=== PATIENT | male | born 1965 | race Caucasian/White ===

== ENCOUNTER → 2019-11-21 13:02 | Outpatient (CLI) | payer MEDICARE, MEDICAID, SELFPAY ==
--- NOTE | 2019-11-21 | XR_ITS ---
WS: [id number] PROCEDURE: XR chest 2V* [id number] CLINICAL INFORMATION: HEMOPTYSIS COMPARISON: FINDINGS: Dorsal spinal stimulator mid thoracic spine. Heart: Normal cardiac silhouette. Lungs: Lungs are clear. No consolidation or pleural fluid. No acute pulmonary infiltrates. 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 XR/XR chest 2V* [id number] IMPRESSION: 1. Moderate chronic emphysematous changes. No acute pulmonary infiltrates. 2. Dorsal spinal stimulator. 3. No other significant findings.
== END ==
PROVIDERS: Family Provider Family Medicine; Visit Provider Family Medicine
DX: Z01.89 Encounter for other specified special examinations (principal)
CPT/HCPCS: 71046

== ENCOUNTER → 2019-11-21 | Outpatient (CLI) | payer SELFPAY | PROVIDERS: Family Provider Family Medicine; Visit Provider Family Medicine | DX: J43.9 Emphysema, unspecified (principal); R04.2 Hemoptysis | CPT/HCPCS: 71250 ==

== ENCOUNTER → 2020-01-26 08:34 | Outpatient (BNVA) | payer MEDICARE, MEDICAID, SELFPAY | PROVIDERS: Family Provider Family Medicine; Visit Provider Family Medicine | DX: R68.89 Other general symptoms and signs (principal); J10.1 Influenza due to other identified influenza virus with other respiratory manifestations; F17.219 Nicotine dependence, cigarettes, with unspecified nicotine-induced disorders | CPT/HCPCS: 87804 ==

== ENCOUNTER → 2020-01-30 13:44 | Outpatient (BNVA) | payer MEDICARE, MEDICAID, SELFPAY | PROVIDERS: Family Provider Family Medicine; Visit Provider Nurse Practitioner Psychiatric/Mental Health | DX: F31.63 Bipolar disorder, current episode mixed, severe, without psychotic features (principal); F02.80 Dementia in other diseases classified elsewhere, unspecified severity, without behavioral disturbance, psychotic disturbance, mood disturbance, and anxiety; F17.210 Nicotine dependence, cigarettes, uncomplicated | CPT/HCPCS: 99213 ==

== ENCOUNTER → 2020-05-29 14:28 | Outpatient (BNVA) | payer MEDICARE, MEDICAID, SELFPAY | PROVIDERS: Family Provider Family Medicine; PCP Family Medicine; Visit Provider Family Medicine | DX: R63.4 Abnormal weight loss (principal); R10.9 Unspecified abdominal pain | CPT/HCPCS: 80053; 84443; 85025 ==

== ENCOUNTER 2020-06-10 08:09 | Outpatient (CLI) | payer MEDICARE, MEDICAID, SELFPAY ==
[2020-06-10] MEDS: iohexol 300 mg/mL 50 mL Btl PO (08:53)
--- NOTE | 2020-06-10 09:30 | CT_ITS ---
WS: [id number] CT ABDOMEN PELVIS TECHNIQUE: Contrast-enhanced CT of the abdomen and pelvis with coronal and sagittal reformatted image s. CLINICAL INFORMATION: abdominal pain, weight loss COMPARISON: None. DLP: 1126.[address] scans at [facility] use at least one of these dose optimization techniques: automat ed exposure control; mA and/or kV adjustment per patient size (includes targeted exams where dose is matched to clinical indication); or iterative reconstruction. FINDINGS: Normal liver. Normal spleen. Normal GE junction. Adrenal glands are normal. Normal renal parenchymal enhancement. Lower pole left renal cyst measuring 2.6 cm. No hydronephrosis. Both adrenal glands are normal. Normal GE junction. Diverticulosis. No evidence of acute diverticulitis. Calcified enlarged prostate measuring 4.5 CM. Re commend correlation PSA. Urine distended bladder. Slight retrolisthesis L2 on L3 and L3 on L4. Lung b ases are well aerated. Small calculus or polyp in the gallbladder neck measuring 8 mm. This can be fo llowed up with ultrasound. No gallbladder wall thickening. No abdominal or inguinal lymphadenopathy. CT/CT abdomen pelvis w con* [id number] IMPRESSION: 1. Diverticulosis. No evidence of acute diverticulitis. 2. Tiny fat-containing umbilical hernia. 3. No abdominal or pelvic lymphadenopathy. 4. Left renal cyst measuring 2.6 cm. 5. Enlarged prostate measuring 4.5 cm recommend correlation PSA. 6. Small calculus or polyp in the gallbladder neck measuring 8 mm. This can be followed up with ultrasound.
[2020-06-10] MEDS: iohexol 300 mg/mL 100 mL Btl IV (09:49)
== END 2020-06-10 08:10 | disposition home or self-care (01) ==
LOC: RADWPI 08:12
PROVIDERS: Family Provider Family Medicine; PCP Family Medicine; Visit Provider Family Medicine
DX: R10.9 Unspecified abdominal pain (principal); R63.4 Abnormal weight loss; K57.90 Diverticulosis of intestine, part unspecified, without perforation or abscess without bleeding; K42.9 Umbilical hernia without obstruction or gangrene; N28.1 Cyst of kidney, acquired; N40.0 Benign prostatic hyperplasia without lower urinary tract symptoms
CPT/HCPCS: 74177; Q9967

== ENCOUNTER → 2020-06-21 07:34 | Outpatient (BNVA) | payer MEDICARE, MEDICAID, SELFPAY | PROVIDERS: Family Provider Family Medicine; PCP Family Medicine; Visit Provider Nurse Practitioner Psychiatric/Mental Health | DX: F31.63 Bipolar disorder, current episode mixed, severe, without psychotic features (principal); F02.80 Dementia in other diseases classified elsewhere, unspecified severity, without behavioral disturbance, psychotic disturbance, mood disturbance, and anxiety; F17.210 Nicotine dependence, cigarettes, uncomplicated | CPT/HCPCS: 99213 ==

== ENCOUNTER 2020-07-02 07:00 | Outpatient (CLI) | payer MEDICARE, MEDICAID, SELFPAY ==
--- NOTE | 2020-07-02 07:15 | US_ITS ---
WS: [id number] ULTRASOUND ABDOMEN LIMITED CLINICAL INFORMATION: gallbladder mass chronic nausea COMPARISON: None. FINDINGS: Liver Size: Enlarged Craniocaudal length: 17.2 cm. Echogenicity: Fatty Surface nodularity: None. Mass (size and location): None. Bile ducts Intrahepatic ducts: Normal. Common bile duct diameter: 0.4 cm. Gallbladder Normal. Gallstones: None. Gallbladder sludge: None. Gallbladder wall thickening: None. Pericholecystic fluid: None. Sonographic Loyola sign: Absent. Pancreas Normal as visualized. Right kidney: Normal. Hydronephrosis: None. Size: 10.9 cm x 5.1 cm x 6.2 cm. Abdominal aorta and IVC Visualized portions are normal. Ascites: None. US/US abdomen limited [id number] IMPRESSION: 1. Hepatomegaly with diffuse fatty infiltration. No intrahepatic biliary ducta l dilatation. 2. Normal gallbladder. Normal common bile duct. 3. No Hydronephrosis in right kidney.
== END 2020-07-02 07:01 | disposition home or self-care (01) ==
PROVIDERS: PCP Family Medicine; Visit Provider Family Medicine
DX: R11.0 Nausea (principal); K82.8 Other specified diseases of gallbladder; R16.0 Hepatomegaly, not elsewhere classified; K76.0 Fatty (change of) liver, not elsewhere classified
CPT/HCPCS: 76705

== ENCOUNTER 2020-07-11 09:37 | Outpatient (CLI) | payer MEDICARE, MEDICAID, SELFPAY ==
--- NOTE | 2020-07-11 10:00 | NM_ITS ---
WS: [id number] EXAM: NM hepatobiliary w phar* [id number] DATE OF EXAMINATION: 07/11/2020, 1123 hour COMPARISON: Right upper quadrant ultrasound from 07/02/2020. HISTORY: 54 years old with abdominal pain TECHNIQUE: 7.9 mCi of technetium 99m mebrofenin was injected intravenously. Serial scintigraphic images overlyin g the right upper quadrant were obtained through 60 minutes followed by the ingestion of 8 ounces Ens ure Plus with ejection fraction calculated. FINDINGS: There is prompt uptake of the tracer by the liver parenchyma. By the 15 minute frame there is tracer activity seen within the biliary system. By the 50 minute frame there also appears to be tracer activ ity within the small bowel. Gallbladder begins to show uptake of tracer by 40 minutes. Ejection fract ion is calculated at 96%. NM/NM hepatobiliary w phar* [id number] IMPRESSION: Normal hepatobiliary scan. No findings of obstruction. Gallbladder has normal u ptake of tracer activity. Ejection fraction estimated at 96%.
== END 2020-07-11 09:38 | disposition home or self-care (01) ==
LOC: NM 09:38
PROVIDERS: PCP Family Medicine; Visit Provider Surgery
DX: R10.9 Unspecified abdominal pain (principal)
CPT/HCPCS: 78227; A9537

== ENCOUNTER → 2020-07-22 08:28 | Outpatient (BNVA) | payer MEDICARE, MEDICAID, SELFPAY | PROVIDERS: PCP Family Medicine; Visit Provider Internal Medicine | DX: K21.9 Gastro-esophageal reflux disease without esophagitis (principal); R10.84 Generalized abdominal pain | CPT/HCPCS: 87635 ==

== ENCOUNTER 2020-07-24 07:40 | Day surgery (SDC) | payer MEDICARE, MEDICAID, SELFPAY ==
[2020-07-22 13:35] VITALS: BMI 23.1
[2020-07-24 07:58] VITALS: BP 108/71; PULSE 96; RESP 18; TEMP 36.7; O2SAT 99
[2020-07-24] MEDS: sodium chloride 0.9% 1,000 ML 30 ML IV (08:01)
--- NOTE | 2020-07-24 08:14 | ANES.PREANE2 ---
Pre-Anesthetic Assessment Pre-Anesthetic Assessment: Height/Weight: Height 1.91 m Weight 83.915 kg Temp Pulse Resp BP Pulse Ox 98.0 F 96 18 108/71 99 07/24/20 07:58 07/24/20 07:58 07/24/20 07:58 07/24/20 07:58 07/24/20 07:58 Preop Diagnosis: Abdominal pain and weight loss Proposed Procedure: Operation Date: 07/24/20 08:30 Proposed Procedures p EGD/colon 88685 [id number] K21.9 Z12.11(Not Applicable) - Akira Dawkins MD s Colonoscopy(Not Applicable) - Akira Dawkins MD Was Beta Medhat taken within 24 hours: N/A Last intake: Intake Last Liquid Date 07/23/20 Last Liquid Time 21:00 Last Solid Date 07/22/20 Social: Social History: Tobacco (1/2pk) and No alcohol Exam: Pre-Anes Outpt Exam: alert, oriented x 3, clear to auscultation bilaterally and regular rate & rhythm Airway: Submandibular: WNL Cervical ROM: WNL MP: 1 Dentition: False History/ROS: No significant history except as noted and No significant complaints Pulmonary: Pulmonary: COPD CV/HEM: CV/HEM: None reported : : None reported Hepatic: Hepatic: None reported GI: GI: GERD Metabolic: Metabolic: None reported Musc/skel: Musc/skel: Lower Back Pain Comments: back surgery hx pain stimulator Neuropsych: Neuropsych: Dementia and MCCOY Comments: parkinsons Anesthetic Plan: ASA status: 3 Anesthesia: MAC Meds/Allergies Current Medications: Current Medications Generic Name Dose Route Start Last Admin Trade Name Freq PRN Reason Stop Dose Admin Sodium Chloride 1,000 mls @ 30 ml s/hr 07/24/20 06:30 07/24/20 08:01 Sodium Chloride 0.9% IV 07/25/20 06:29 30 mls/hr .Q24H SUKH Administration PFSH Anesthesia PFSH: Medical History (Updated 07/03/20 @ 14:41 by Carly Antonio RN) Bipolar 1 disorder, mixed, severe Chronic GERD COPD (chronic obstructive pulmonary disease) Enrolled in chronic care management Major neurocognitive disorder due to multiple etiologies MCI (mild cognitive impairment) Migraine headache Nicotine dependence, cigarettes, uncomplicated BRIANDA (obstructive sleep apnea) Parkinson's disease dementia RLS (restless legs syndrome) Surgical History H/O shoulder surgery History of back surgery S/P hernia repair S/P insertion of spinal cord stimulator Family History Other CAD (coronary artery disease) Cancer Dementia Social History Smoking and tobacco status: current every day smoker cigarettes Packs smoked per day: 0.75 Alcohol intake: former Lives independently: Yes Household members: significant other Current occupational status: disabled Data Anesthesia Cardiac Studies: No Data to Display
--- NOTE | 2020-07-24 08:23 | W.PM.OPSUD ---
Surgery/Procedure H&P Update DATE OF PROCEDURE: July 24, 2020 DATE H&P PERFORMED: 07/03/20 H&P UPDATE INFORMATION: I have reviewed H&P completed within last 30 days, I have examined patient prior to procedure and No changes to prior documentation PREOP DIAGNOSIS: Abdominal pain and weight loss PRIMARY INDICATION FOR PROCEDURE: The same PLANNED PROCEDURE: Operation Date: 07/24/20 08:30 Proposed Procedures p EGD/colon 63400 [id number] K21.9 Z12.11(Not Applicable) - Akira Dawkins MD s Colonoscopy(Not Applicable) - Akira Dawkins MD
[2020-07-24 08:53] VITALS: BP 91/62; PULSE 82; RESP 16; TEMP 36.4; O2SAT 99
--- NOTE | 2020-07-24 09:30 | ANE.PACU2 ---
Inpatient post-anesthesia follow up: Airway intact: Yes Vital signs: Temperature 97.5 F Pulse Rate 82 Respiratory Rate 16 Blood Pressure 91/62 Pulse Oximetry 99 Oxygen Delivery Me thod Nasal Cannula Oxygen Flow Rate 2 Fraction of Inspir ed Oxygen Hydration adequate: Yes Nausea and vomiting: No Mental status: Baseline
[2020-07-25 10:01] LABS: H. Pylori / CLO Test Negative
== END 2020-07-24 09:23 | disposition home or self-care (01) ==
PROVIDERS: PCP Family Medicine; Visit Provider Surgery
PROC: 0DJ08ZZ Inspection of Upper Intestinal Tract, Via Natural or Artificial Opening Endoscopic (ICD-10-PCS; CPT 43235; principal; 2020-07-24 08:30)
PROC: 0DJD8ZZ Inspection of Lower Intestinal Tract, Via Natural or Artificial Opening Endoscopic (ICD-10-PCS; CPT 45378; 2020-07-24 08:30)
DX: R63.4 Abnormal weight loss (principal); K29.70 Gastritis, unspecified, without bleeding; K57.30 Diverticulosis of large intestine without perforation or abscess without bleeding; F17.210 Nicotine dependence, cigarettes, uncomplicated; J44.9 Chronic obstructive pulmonary disease, unspecified; K21.9 Gastro-esophageal reflux disease without esophagitis; F31.63 Bipolar disorder, current episode mixed, severe, without psychotic features; G47.33 Obstructive sleep apnea (adult) (pediatric); G20 Parkinson's disease; F02.80 Dementia in other diseases classified elsewhere, unspecified severity, without behavioral disturbance, psychotic disturbance, mood disturbance, and anxiety; G25.81 Restless legs syndrome
CPT/HCPCS: 12345; 43239; 45378; 87077; J2704; J7030

== ENCOUNTER 2020-08-27 09:05 | Outpatient (CLI) | payer MEDICARE, MEDICAID, SELFPAY ==
--- NOTE | 2020-08-27 09:15 | FL_ITS ---
WS: [id number] BARIUM ENEMA SINGLE CONTRAST. HISTORY: K57.90 Diverticulosis of intestine COMPARISON: None available. FLUOROSCOPY TIME: 2.8 minutes. Moderate amount retained air and fecal material throughout the colon. Dorsal column stimulator batter y pack projects over the mid LEFT abdomen. Facet joint arthritis and SI joint sclerosis. Patient tolerated the rectal tip and instillation of barium via gravity without difficulty. There are numerous tortuous overlapping loops of colon. Numerous diverticula throughout the colon. The small f illing defects seen within the transverse colon which appear to represent a diverticular disease seen en face. There is no persistent stricture or narrowing. Appendix is visualized and negative. FL/FL barium enema [id number] IMPRESSION: 1. Tortuous overlapping loops of colon with numerous scattered diverticula thr oughout. 2. No strictures or mucosal lesions identified. 3. Study is limited due to limited prep and retained fecal material.
== END 2020-08-27 09:06 | disposition home or self-care (01) ==
LOC: RADWPI 09:12
PROVIDERS: PCP Family Medicine; Visit Provider Surgery
DX: K57.90 Diverticulosis of intestine, part unspecified, without perforation or abscess without bleeding (principal)
CPT/HCPCS: 74270

== ENCOUNTER → 2020-09-06 07:27 | Outpatient (BNVA) | payer MEDICARE, MEDICAID, SELFPAY | PROVIDERS: PCP Family Medicine; Visit Provider Nurse Practitioner Psychiatric/Mental Health | DX: F31.63 Bipolar disorder, current episode mixed, severe, without psychotic features (principal); F02.80 Dementia in other diseases classified elsewhere, unspecified severity, without behavioral disturbance, psychotic disturbance, mood disturbance, and anxiety; F17.210 Nicotine dependence, cigarettes, uncomplicated; Z79.899 Other long term (current) drug therapy; F33.42 Major depressive disorder, recurrent, in full remission | CPT/HCPCS: 99213 ==

== ENCOUNTER → 2020-12-18 07:53 | Outpatient (BNVA) | payer MEDICARE, MEDICAID, SELFPAY | PROVIDERS: PCP Family Medicine; Visit Provider Nurse Practitioner Psychiatric/Mental Health | DX: F31.63 Bipolar disorder, current episode mixed, severe, without psychotic features (principal); F02.80 Dementia in other diseases classified elsewhere, unspecified severity, without behavioral disturbance, psychotic disturbance, mood disturbance, and anxiety; F17.210 Nicotine dependence, cigarettes, uncomplicated | CPT/HCPCS: 99214 ==

== ENCOUNTER → 2021-02-05 07:19 | Outpatient (BNVA) | payer MEDICARE, MEDICAID, SELFPAY | PROVIDERS: PCP Family Medicine; Visit Provider Nurse Practitioner Psychiatric/Mental Health | DX: F31.63 Bipolar disorder, current episode mixed, severe, without psychotic features (principal); F02.80 Dementia in other diseases classified elsewhere, unspecified severity, without behavioral disturbance, psychotic disturbance, mood disturbance, and anxiety; F17.210 Nicotine dependence, cigarettes, uncomplicated | CPT/HCPCS: 99214 ==

== ENCOUNTER → 2021-02-07 09:21 | Outpatient (BNVA) | payer MEDICARE, MEDICAID, SELFPAY | PROVIDERS: PCP Family Medicine; Visit Provider Nurse Practitioner Psychiatric/Mental Health | DX: Z79.899 Other long term (current) drug therapy (principal) | CPT/HCPCS: 80053; 80061; 83036 ==

== ENCOUNTER → 2021-03-05 08:05 | Outpatient (BNVA) | payer MEDICARE, MEDICAID, SELFPAY | PROVIDERS: PCP Family Medicine; Visit Provider Nurse Practitioner Psychiatric/Mental Health | DX: F31.63 Bipolar disorder, current episode mixed, severe, without psychotic features (principal); F02.80 Dementia in other diseases classified elsewhere, unspecified severity, without behavioral disturbance, psychotic disturbance, mood disturbance, and anxiety; F17.210 Nicotine dependence, cigarettes, uncomplicated | CPT/HCPCS: 99214 ==

== ENCOUNTER 2021-03-20 21:58 | Emergency (ER) | payer MEDICARE, MEDICAID, SELFPAY ==
[2021-03-20 22:26] VITALS: BP 97/69; PULSE 75; RESP 16; TEMP 37.3; O2SAT 100; BMI 20.9
--- NOTE | 2021-03-21 00:29 | XRR_ITS ---
PROCEDURE INFORMATION: Exam: XR Chest Exam date and time: 03/21/2021 12:45 AM Age: 55 years old Clinical indication: Patient HX: General maliase; Additional info: Fatigue TECHNIQUE: Imaging protocol: XR of the chest. Views: 1 view. COMPARISON: CT chest con [id number] 11/21/2019 2:25 PM FINDINGS: Lungs: There is hypoaeration of the lungs compatible with emphysematous changes. Pleural spaces: Unremarkable. No pleural effusion. No pneumothorax. Heart/Mediastinum: Unremarkable. No cardiomegaly. Bones/joints: Unremarkable. XR/XR chest 1V portable [id number] IMPRESSION: There are no acute chest findings.
[2021-03-21 01:23] VITALS: BP 112/77; PULSE 54; RESP 18; O2SAT 99
[2021-03-21 01:26] LABS: Basophils % 0.6 %; Eosinophils # 0.1 10^3/uL (0.0-0.8); Eosinophils % 1.5 %; Hematocrit 43.7 % (42.0-52.0); Hemoglobin 14.4 g/dL (11.7-16.6); Lymphocytes # 1.8 10^3/uL (0.8-4.8); Lymphocytes % 33.8 %; Mean Corpuscular Hemoglobin 30.9 pg (28.0-34.0); Mean Corpuscular Volume 93.8 fL (80-94); Monocytes # 0.4 10^3/uL (0.2-0.9); Monocytes % 7.3 %; Neutrophils # 2.95 10^3/uL (1.8-7.7); Neutrophils % 56.6 %; Nucleated Red Blood Cells % 0 %; Platelet Count 185 10^3/cmm (130-400); Red Blood Count 4.66 10^6/uL (4.1-5.3); Red Cell Distribution Width 12.8 % (12.1-15.1); White Blood Count 5.2 10^3/uL (4.0-10.0)
--- NOTE | 2021-03-21 01:26 | CTR_ITS ---
PROCEDURE INFORMATION: Exam: CT Abdomen And Pelvis With Contrast Exam date and time: 03/21/2021 1:31 AM Age: 55 years old Clinical indication: Prior surgery; Surgery type: Stimulator; Patient HX: Maliase. Loss of appetite. Back pain. ; Additional info: Back pain, abd pain TECHNIQUE: Imaging protocol: Computed tomography of the abdomen and pelvis with contrast. Radiation optimization: All CT scans at this facility use at least one of these dose optimization techniques: automated exposure control; mA and/or kV adjustment per patient size (includes targeted exams where dose is matched to clinical indication); or iterative reconstruction. Contrast material: OMNI 300; Contrast volume: 95 ml; Contrast route: INTRAVENOUS (IV); COMPARISON: CT abdomen pelvis w con* [id number] 06/10/2020 9:47 AM RADIATION DOSE METRICS: Total DLP (mGy-cm): 1347.12 FINDINGS: Pleural spaces: Minimal strandy and hazy opacities are seen in the posterior right costophrenic recess likely representing atelectasis versus parenchymal or pleural scarring. Liver: There are tiny hypodensities seen within the liver, the largest measuring 7.1 mm within the left hepatic lobe likely representing small hepatic cysts. Gallbladder and bile ducts: Normal. No calcified stones. No ductal dilation. Pancreas: Normal. No ductal dilation. Spleen: Normal. No splenomegaly. Adrenal glands: Normal. No mass. Kidneys and ureters: Is stable pelvocaliceal cyst seen within the left kidney measuring 2.6 cm. Stomach and bowel: Diverticula are seen on the descending and sigmoid colon. There are no inflammatory changes present to suggest diverticulitis. Appendix: The appendix is visualized and is normal in configuration. Intraperitoneal space: Unremarkable. No free air. No significant fluid collection. Vasculature: Calcifications are seen within the abdominal aorta, iliac and femoral arteries bilaterally. Lymph nodes: Unremarkable. No enlarged lymph nodes. Urinary bladder: There is bladder wall thickening seen although the bladder is incompletely distended. However, chronic cystitis cannot be entirely excluded. Reproductive: Unremarkable as visualized. Bones/joints: Loss of disc height and degenerative disc disease is seen within the lumbar spine, most notably from L3-L5. Soft tissues: Unremarkable. CT/CT abdomen pelvis w con* [id number] IMPRESSION: 1. There are no acute abdominal findings. 2. Small hypodensities within the liver likely represent benign appendix cysts, the largest seen in the left hepatic lobe measuring 7.1 mm. No further workup needed. 3. Stable pelvocaliceal cyst seen within the left kidney measuring 2.6 cm. No further workup needed. 4. Diverticulosis of the descending and sigmoid colon 5. Bladder wall thickening although the bladder is incompletely distended. However, cystitis cannot be entirely excluded. Radiation Dose CTDIVOL = (mGy): DLP = 1347.12 (mGy-cm)
[2021-03-21 01:39] LABS: Blood Urine 2+ (Negative); Glucose Urine UA Norm (Normal); Ketones Urine Negative (Negative); Protein Urine Neg (Negative); Specific Gravity, Urine 1.015 (1.005-1.030); Urine Appearance Clear (CLEAR); Urine Color Yellow (Yellow); pH Urine 8 (5-7)
[2021-03-21] MEDS: sodium chloride 0.9% 500 ML 999 ML IV (01:39)
[2021-03-21 01:40] LABS: Add Urine Microscopic? YES; Bacteria Urine TRACE /hpf; Bilirubin Urine Neg (Negative); Leukocyte Esterase Urine Negative (Negative); Nitrate Urine Negative (Negative); RBC Urine 0-4 /hpf (0-2); Squamous Epithelial Cell Urine 0-4 /hpf (0-5); Sulfosalicylic Acid Urine Negative (Negative); Urobilinogen Urine Norm (Negative); WBC Urine 0-4 /hpf (0-5)
[2021-03-21 01:47] LABS: Creatine Phosphokinase 77 U/L (39-308)
[2021-03-21 01:48] LABS: Troponin(5th) Baseline 7 ng/L (0-15)
[2021-03-21 01:52] LABS: Alanine Aminotransferase 11 U/L (0-41); Albumin Level 4.2 g/dL (3.5-5.2); Alkaline Phosphatase 62 IU/L (40-130); Blood Urea Nitrogen 12 mg/dL (6-20); Calcium 9.2 mg/dL (8.5-10.5); Carbon Dioxide 24 mmol/L (22-29); Chloride 105 mmol/L (98-107); Globulin 1.8 g/dL (1.3-4.6); Glomerular Filtration Rate 88.3 mL/min (90-130); Glucose 82 mg/dL (65-115); Lipase 39 U/L (13-60); Osmolality Calculated 287 mOsm/kg (285-295); Sodium 139 mmol/L (136-145); Total Bilirubin 0.7 mg/dL (0.15-1.2)
[2021-03-21 01:54] LABS: Anion Gap 13.7 (5-19); Potassium 3.7 mmol/L (3.5-5.1)
[2021-03-21 01:55] LABS: Aspartate Amino Transferase 16 U/L (0-40)
[2021-03-21] MEDS: iohexol 300 mg/mL 100 mL Btl IV (01:58)
--- NOTE | 2021-03-21 01:58 | W.ED.GENADLT ---
HPI - General Adult General: Chief complaint: General Medical Stated complaint: GENERAL MALAISE Time Seen by Provider: 03/21/21 01:09 Source: patient Mode of arrival: ambulatory Limitations: no limitations History of Present Illness: HPI narrative: 55-year-old male patient presents to the emergency department with complaints of decreased appetite, aching all over, decreased mobility, he suffers from dementia and Parkinson's disease. Significant other reports he has stayed in bed for the past several weeks. She reports when she bathes him, he complains of pain all over, she states his skin is extremely sensitive to the touch. He has history of dementia, Parkinson's type, under the care of Dr. Mora, neurology, is transitioning from Dr. Salcedo to Dr. Conn for hospice care. His significant other is requesting hospice referral as pain is not controlled under pain management and wants him comfortable. He is complaining of back pain and abdominal pain, states is under the care of pain management for chronic back pain of the lower back. He has history of weight loss, has been under the care of Dr. Dawkins for weight loss and decreased appetite. He reports weakness, he describes back pain as same but worse. Primary care provider is Dr. Conn He reports back pain is worsened with movement. He denies fever chills, nausea or vomiting. He denies falls in the home. Radiation: back and abdomen Severity: moderate Quality: aching and dull Pain Consistency: constant Relieving factors: rest Exacerbating factors: movement Associated symptoms: Reports decreased appetite and headache(s); Deny chest pain, diaphoresis, dyspnea, nausea, rash, palpitations or vomiting Review of Systems General: Reports: 10 or more systems reviewed and unremarkable except in HPI and below Const: Denies: fever(s), chills or diaphoresis Eyes: Denies: blurry vision or eye redness ENMT: Denies: throat pain, dental pain or disequilibrium Card: Denies: chest pain, palpitations or irregular heart rhythm Resp: Denies: dyspnea, productive cough, non-productive cough, wheezing or chest congestion GI: Reports: abdominal pain; Denies: nausea, vomiting, heartburn, diarrhea or constipation : Denies: dysuria Musc: Reports: back pain; Denies: neck pain or joint pain Skin/Breast: Denies: rash or pruritus Neuro: Reports: headache(s) Psych: Reports: change in appetite and difficulty concentrating; Denies: anxiety or depression Venancio/Lymph: Denies: easy bruising PFSH ED PFSH: Medical History Abdominal pain Bipolar 1 disorder, mixed, severe Chronic GERD COPD (chronic obstructive pulmonary disease) Diverticulosis Enrolled in chronic care management Major neurocognitive disorder due to multiple etiologies MCI (mild cognitive impairment) Migraine headache Nicotine dependence, cigarettes, uncomplicated BRIANDA (obstructive sleep apnea) Parkinson's disease dementia RLS (restless legs syndrome) Surgical History H/O shoulder surgery History of back surgery S/P hernia repair S/P insertion of spinal cord stimulator Family History Other CAD (coronary artery disease) Cancer Dementia Social History Smoking and tobacco status: current every day smoker cigarettes Packs smoked per day: 0.75 Years cigarettes smoked: 35 Quit status (tobacco): considering quitting Second hand smoke exposure: Yes Smoking risk assessment/counseling performed?: Yes Alcohol intake: former Counseling given: No Counseling given: No Lives independently: Yes Household members: significant other Current occupational status: disabled History of recent travel: No Current gender identity: Male Physical Exam Const: COMMON NORMALS: no acute distress, patient oriented x3 and alert GENERAL APPEARANCE: cooperative, well kempt, frail appearing and well hydrated; not anxious and not ill appearing NUTRITIONAL APPEARANCE: thin ORIENTATION/CONSCIOUSNESS: Yes awake, Yes oriented to person, Yes oriented to place, Yes oriented to time and Yes Other orientation findings (Appears emaciated) HENMT: COMMON NORMALS: normocephalic, atraumatic, EAC's normal, Normal external nose present and moist oral mucous membranes HEAD & SCALP: normal to inspection, normocephalic and atraumatic FACE & SINUS: normal facial exam, sinuses nontender and face symmetric NOSE: Normal external nose present and No nasal polyps present EXTERNAL AUDITORY CANAL: EAC's normal MOUTH: Normal oral and palatal mucosa present, lip normal and tongue normal THROAT: posterior oropharynx normal, tonsils normal and uvula midline Eye: COMMON NORMALS: Equal, round and reactive pupils present and EOMs intact bilaterally GENERAL EYE: appearance normal, both eyes and all related structures PUPIL: Yes Equal, round and reactive pupils present Neck/C-Spine: COMMON NORMALS: full ROM and no lymphadenopathy GENERAL: Yes normal visual inspection and Yes trachea midline CERVICAL SPINE: Yes cervical ROM normal Lymph: LYMPHATIC: no lymphadenopathy noted Chest: COMMONS NORMALS: normal inspection of the chest and normal palpation of entire chest wall Resp: COMMON NORMALS: normal respiratory effort, No retractions, No use of accessory muscles and clear to auscultation bilaterally EFFORT & INSPECTION: Yes able to speak in complete sentences AUSCULTATION: clear to auscultation bilaterally Cardio: COMMON NORMALS: regular rate, regular rhythm, S1 normal heart sound present, S2 normal heart sound present and Peripheral pulses 2+ throughout RATE: regular rate RHYTHM: regular rhythm HEART SOUNDS: S1 normal heart sound present and S2 normal heart sound present PERIPHERAL PULSES: Peripheral pulses 2+ throughout GI: COMMON NORMALS: Soft to palpation INSPECTION: Yes normal to inspection, No abdominal wall ecchymosis, No abdominal distension and No central obesity PALPATION: Yes Soft to palpation and Yes Tenderness to palpation present (GI) Details: LLQ, RLQ, LUQ and RUQ : BLADDER/KIDNEY EXAM: Yes CVA tenderness on the right Back/Pelvis: COMMON NORMALS: thoracic and lumbar spine normal to inspection GENERAL BACK: Yes CVA tenderness THORACIC SPINE/UPPER BACK: Yes pain with ROM, Yes thoracic spinal tenderness and Yes paraspinal muscle tenderness LUMBAR SPINE/LOWER BACK: Yes pain with ROM, Yes lumbar spinal tenderness and Yes paraspinal muscle tenderness PELVIS: Yes buttocks normal SACROILIAC JOINTS: Yes SI joints normal OTHER: Scar to the lumbar spine, spinal stimulator noted to the right lumbar, no erythema or discoloration of the skin Extremity: COMMON NORMALS: normal to inspection, full ROM, capillary refill normal, no clubbing, cyanosis or edema, no calf tenderness and no pedal edema GENERAL: Yes normal exam except as noted Neuro: COMMON NORMALS: patient oriented x3 and no focal motor deficits SENSORIUM/ORIENTATION: Yes alert, Yes oriented to person, Yes oriented to place and Yes oriented to time Psych: COMMON NORMALS: mental status grossly normal, cooperative, normal affect and speech normal APPEARANCE: Yes well kempt ACTIVITY/MOTOR BEHAVIOR: Yes appropriate eye contact SPEECH: Yes normal speech THOUGHT PROCESS: Circumstantial thought process present THOUGHT CONTENT: No Suicidality present and No Homicidality present INSIGHT: Fair insight present (Psych) Skin: COMMON NORMALS: no rashes or lesions noted and turgor normal GENERAL SKIN EXAM: no rashes or lesions noted and turgor normal Course Vital Signs: Vital signs: Vital Signs Temperature 99.2 F 03/20/21 22:26 Pulse Rate 54 L 03/21/21 01:23 Respiratory Rate 18 03/21/21 01:23 Blood Pressure 112/77 03/21/21 01:23 Pulse Oximetry 99 03/21/21 01:23 MDM - General Adult MDM Narrative: Medical decision making narrative: 55-year-old male presents to the emergency department with complaints of hurting all over, decreased appetite secondary to dementia, continued decline. His significant other is at bedside and states his neurologist states his dementia is progressing rapidly, as she is asking for hospice, recently transitioned from Dr. Benitez to Dr. Conn, hospice currently on hold due to insufficient records. Pain management is not controlling pain. ESR was 1.5, CPK 77, he did receive a liter of fluids here in the ED, findings of serology, CT scans without acute process. Social service referral for hospice placed to help assist with needed medication to keep patient comfortable. I will initiate Neurontin to help with nerve pain. Advised significant other to dose Percocet regularly as prescribed. Protein was found to be low, will initiate Ensure 1 can daily due to protein of 6.0. Lab Data: Labs: Lab Results 03/21/21 03/21/21 03/21/21 Range/Units 01:20 01:20 01:20 WBC 5.2 (4.0-10.0) 10^3/ uL RBC 4.66 (4.1-5.3) 10^6/u L Hgb 14.4 (11.7-16.6) g/dL Hct 43.7 (42.0-52.0) % MCV 93.8 (80-94) fL MCH 30.9 (28.0-34.0) pg MCHC 33.0 (30.0-36.0) g/dL RDW 12.8 (12.1-15.1) % Plt Count 185 (130-400) 10^3/c mm MPV 10.0 (7.4-10.4) fL Neut % (Auto) 56.6 % Lymph % (Auto) 33.8 % Hawkins % (Auto) 7.3 % Eos % (Auto) 1.5 % Baso % (Auto) 0.6 % Neut # (Auto) 2.95 (1.8-7.7) 10^3/u L Lymph # (Auto) 1.8 (0.8-4.8) 10^3/u L Hawkins # (Auto) 0.4 (0.2-0.9) 10^3/u L Eos # (Auto) 0.1 (0.0-0.8) 10^3/u L Baso # (Auto) 0.0 (0.0-0.1) 10^3/u L Nucleated RBC % (a uto) 0 % Nucleated RBCs # 0.0 /100WBC Sodium 139 (136-145) mmol/L Potassium 3.7 (3.5-5.1) mmol/L Chloride 105 (98-107) mmol/L Carbon Dioxide 24 (22-29) mmol/L Anion Gap 13.7 (5-19) BUN 12 (6-20) mg/dL Creatinine 0.9 (0.7-1.2) mg/dL GFR Calculation 88.3 L (90-130) mL/min Glucose 82 (65-115) mg/dL Calculated Osmolal ity 287 (285-295) mOsm/k g Lactate 1.0 (0.5-2.2) mmol/L Calcium 9.2 (8.5-10.5) mg/dL Total Bilirubin 0.7 (0.15-1.2) mg/dL AST 16 (0-40) U/L ALT 11 (0-41) U/L Alkaline Phosphata se 62 (40-130) IU/L Creatine Kinase (39-308) U/L Troponin T Baselin e (0-15) ng/L C-Reactive Protein (0.0-4.9) mg/L Total Protein 6.0 L (6.6-8.7) g/dL Albumin 4.2 (3.5-5.2) g/dL Globulin 1.8 (1.3-4.6) g/dL Lipase 39 (13-60) U/L Urine Color (Yellow) Urine Appearance (CLEAR) Urine pH (5-7) Ur Specific Gravit y (1.005-1.030) Urine Protein (Negative) Urine Glucose (UA) (Normal) Urine Ketones (Negative) Urine Blood (Negative) Urine Nitrate (Negative) Urine Bilirubin (Negative) Prot Sulfosalicyli c Acd (Negative) Urine Urobilinogen (Negative) mg/dL Ur Leukocyte Jahaira ase (Negative) Urine RBC (0-2) /hpf Urine WBC (0-5) /hpf Ur Squamous Epith Cells (0-5) /hpf Amorphous Sediment Urine Bacteria (NONE) /hpf 03/21/21 03/21/21 03/21/21 Range/Units 01:20 01:20 01:20 WBC (4.0-10.0) 10^3/ uL RBC (4.1-5.3) 10^6/u L Hgb (11.7-16.6) g/dL Hct (42.0-52.0) % MCV (80-94) fL MCH (28.0-34.0) pg MCHC (30.0-36.0) g/dL RDW (12.1-15.1) % Plt Count (130-400) 10^3/c mm MPV (7.4-10.4) fL Neut % (Auto) % Lymph % (Auto) % Hawkins % (Auto) % Eos % (Auto) % Baso % (Auto) % Neut # (Auto) (1.8-7.7) 10^3/u L Lymph # (Auto) (0.8-4.8) 10^3/u L Hawkins # (Auto) (0.2-0.9) 10^3/u L Eos # (Auto) (0.0-0.8) 10^3/u L Baso # (Auto) (0.0-0.1) 10^3/u L Nucleated RBC % (a uto) % Nucleated RBCs # /100WBC Sodium (136-145) mmol/L Potassium (3.5-5.1) mmol/L Chloride (98-107) mmol/L Carbon Dioxide (22-29) mmol/L Anion Gap (5-19) BUN (6-20) mg/dL Creatinine (0.7-1.2) mg/dL GFR Calculation (90-130) mL/min Glucose (65-115) mg/dL Calculated Osmolal ity (285-295) mOsm/k g Lactate (0.5-2.2) mmol/L Calcium (8.5-10.5) mg/dL Total Bilirubin (0.15-1.2) mg/dL AST (0-40) U/L ALT (0-41) U/L Alkaline Phosphata se (40-130) IU/L Creatine Kinase 77 (39-308) U/L Troponin T Baselin e 7 (0-15) ng/L C-Reactive Protein (0.0-4.9) mg/L Total Protein (6.6-8.7) g/dL Albumin (3.5-5.2) g/dL Globulin (1.3-4.6) g/dL Lipase (13-60) U/L Urine Color Yellow (Yellow) Urine Appearance Clear (CLEAR) Urine pH 8 H (5-7) Ur Specific Gravit y 1.015 (1.005-1.030) Urine Protein Neg (Negative) Urine Glucose (UA) Norm (Normal) Urine Ketones Negative (Negative) Urine Blood 2+ H (Negative) Urine Nitrate Negative (Negative) Urine Bilirubin Neg (Negative) Prot Sulfosalicyli c Acd Negative (Negative) Urine Urobilinogen Norm (Negative) mg/dL Ur Leukocyte Jahaira ase Negative (Negative) Urine RBC 0-4 H (0-2) /hpf Urine WBC 0-4 H (0-5) /hpf Ur Squamous Epith Cells 0-4 H (0-5) /hpf Amorphous Sediment Not Reportable Urine Bacteria Trace (NONE) /hpf 03/21/21 Range/Units 01:20 WBC (4.0-10.0) 10^3/ uL RBC (4.1-5.3) 10^6/u L Hgb (11.7-16.6) g/dL Hct (42.0-52.0) % MCV (80-94) fL MCH (28.0-34.0) pg MCHC (30.0-36.0) g/dL RDW (12.1-15.1) % Plt Count (130-400) 10^3/c mm MPV (7.4-10.4) fL Neut % (Auto) % Lymph % (Auto) % Hawkins % (Auto) % Eos % (Auto) % Baso % (Auto) % Neut # (Auto) (1.8-7.7) 10^3/u L Lymph # (Auto) (0.8-4.8) 10^3/u L Hawkins # (Auto) (0.2-0.9) 10^3/u L Eos # (Auto) (0.0-0.8) 10^3/u L Baso # (Auto) (0.0-0.1) 10^3/u L Nucleated RBC % (a uto) % Nucleated RBCs # /100WBC Sodium (136-145) mmol/L Potassium (3.5-5.1) mmol/L Chloride (98-107) mmol/L Carbon Dioxide (22-29) mmol/L Anion Gap (5-19) BUN (6-20) mg/dL Creatinine (0.7-1.2) mg/dL GFR Calculation (90-130) mL/min Glucose (65-115) mg/dL Calculated Osmolal ity (285-295) mOsm/k g Lactate (0.5-2.2) mmol/L Calcium (8.5-10.5) mg/dL Total Bilirubin (0.15-1.2) mg/dL AST (0-40) U/L ALT (0-41) U/L Alkaline Phosphata se (40-130) IU/L Creatine Kinase (39-308) U/L Troponin T Baselin e (0-15) ng/L C-Reactive Protein 1.5 (0.0-4.9) mg/L Total Protein (6.6-8.7) g/dL Albumin (3.5-5.2) g/dL Globulin (1.3-4.6) g/dL Lipase (13-60) U/L Urine Color (Yellow) Urine Appearance (CLEAR) Urine pH (5-7) Ur Specific Gravit y (1.005-1.030) Urine Protein (Negative) Urine Glucose (UA) (Normal) Urine Ketones (Negative) Urine Blood (Negative) Urine Nitrate (Negative) Urine Bilirubin (Negative) Prot Sulfosalicyli c Acd (Negative) Urine Urobilinogen (Negative) mg/dL Ur Leukocyte Jahaira ase (Negative) Urine RBC (0-2) /hpf Urine WBC (0-5) /hpf Ur Squamous Epith Cells (0-5) /hpf Amorphous Sediment Urine Bacteria (NONE) /hpf Imaging Data^: CXR: Radiologist's impression: [place], [place] [address]PWnf ReportSigned Patient: Cabrera Sherman #: [id number]: 1965Acct#:[id number]/Sex: 55 / MADM Date: 03/20/21Loc: ERRoom/Bed:Attending Dr: Ordering Provider/Ordering MD: Rosemary Burks Date of Service: 03/21/21 Procedure(s): XR chest 1V portable [id number] Accession Number(s): [id number] Report Number: [id number] PROCEDURE INFORMATION: Exam: XR Chest Exam date and time: 03/21/2021 12:45 AM Age: 55 years old Clinical indication: Patient HX: General maliase; Additional info: Fatigue TECHNIQUE: Imaging protocol: XR of the chest. Views: 1 view. COMPARISON: CT chest wo con [id number] 11/21/2019 2:25 PM FINDINGS: Lungs: There is hypoaeration of the lungs compatible with emphysematous changes. Pleural spaces: Unremarkable. No pleural effusion. No pneumothorax. Heart/Mediastinum: Unremarkable. No cardiomegaly. Bones/joints: Unremarkable. XR/XR chest 1V portable [id number] IMPRESSION: There are no acute chest findings. Dictated By:Rj Owen MDSigned By:Rj Owen MDSigned Date/Time:03/21/21 0123DD/ 0122 CT Abd/Pel: Radiologist's impression: [place], [place] [address]VT Scan ReportSigned Patient: Cabrera Sherman #: [id number]: 1965Acct#:[id number]/Sex: 55 / MADM Date: 03/20/21Loc: ERRoom/Bed:Attending Dr: Ordering Provider/Ordering MD: Rosemary Burks Date of Service: 03/21/21 Procedure(s): CT abdomen pelvis w con* [id number] Accession Number(s): [id number] Report Number: [id number] PROCEDURE INFORMATION: Exam: CT Abdomen And Pelvis With Contrast Exam date and time: 03/21/2021 1:31 AM Age: 55 years old Clinical indication: Prior surgery; Surgery type: Stimulator; Patient HX: Maliase. Loss of appetite. Back pain. ; Additional info: Back pain, abd pain TECHNIQUE: Imaging protocol: Computed tomography of the abdomen and pelvis with contrast. Radiation optimization: All CT scans at this facility use at least one of these dose optimization techniques: automated exposure control; mA and/or kV adjustment per patient size (includes targeted exams where dose is matched to clinical indication); or iterative reconstruction. Contrast material: OMNI 300; Contrast volume: 95 ml; Contrast route: INTRAVENOUS (IV); COMPARISON: CT abdomen pelvis w con* [id number] 06/10/2020 9:47 AM RADIATION DOSE METRICS: Total DLP (mGy-cm): 1347.12 FINDINGS: Pleural spaces: Minimal strandy and hazy opacities are seen in the posterior right costophrenic recess likely representing atelectasis versus parenchymal or pleural scarring. Liver: There are tiny hypodensities seen within the liver, the largest measuring 7.1 mm within the left hepatic lobe likely representing small hepatic cysts. Gallbladder and bile ducts: Normal. No calcified stones. No ductal dilation. Pancreas: Normal. No ductal dilation. Spleen: Normal. No splenomegaly. Adrenal glands: Normal. No mass. Kidneys and ureters: Is stable pelvocaliceal cyst seen within the left kidney measuring 2.6 cm. Stomach and bowel: Diverticula are seen on the descending and sigmoid colon. There are no inflammatory changes present to suggest diverticulitis. Appendix: The appendix is visualized and is normal in configuration. Intraperitoneal space: Unremarkable. No free air. No significant fluid collection. Vasculature: Calcifications are seen within the abdominal aorta, iliac and femoral arteries bilaterally. Lymph nodes: Unremarkable. No enlarged lymph nodes. Urinary bladder: There is bladder wall thickening seen although the bladder is incompletely distended. However, chronic cystitis cannot be entirely excluded. Reproductive: Unremarkable as visualized. Bones/joints: Loss of disc height and degenerative disc disease is seen within the lumbar spine, most notably from L3-L5. Soft tissues: Unremarkable. CT/CT abdomen pelvis w con* [id number] IMPRESSION: 1. There are no acute abdominal findings. 2. Small hypodensities within the liver likely represent benign appendix cysts, the largest seen in the left hepatic lobe measuring 7.1 mm. No further workup needed. 3. Stable pelvocaliceal cyst seen within the left kidney measuring 2.6 cm. No further workup needed. 4. Diverticulosis of the descending and sigmoid colon 5. Bladder wall thickening although the bladder is incompletely distended. However, cystitis cannot be entirely excluded. Radiation Dose CTDIVOL = (mGy): DLP = 1347.12 (mGy-cm) Dictated By:Rj Owen MDSigned By:Rj Owen MDSigned Date/Time:03/21/214DD/ 1 CT Head: Radiologist's impression: [address] [id number] Scan ReportSigned Patient: Cabrera Sherman #: [id number]: 1965Acct#:[id number]/Sex: 55 / MADM Date: 03/20/21Loc: ERRoom/Bed:Attending Dr: Ordering Provider/Ordering MD: Rosemary Burks Date of Service: 03/21/21 Procedure(s): CT head wo con* [id number] Accession Number(s): [id number] Report Number: [id number] PROCEDURE INFORMATION: Exam: CT Head Without Contrast Exam date and time: 03/21/2021 2:12 AM Age: 55 years old Clinical indication: Pain; Headache not specified; Patient HX: Headache with maliase; Additional info: Read/ weakness TECHNIQUE: Imaging protocol: Computed tomography of the head without contrast. Radiation optimization: All CT scans at this facility use at least one of these dose optimization techniques: automated exposure control; mA and/or kV adjustment per patient size (includes targeted exams where dose is matched to clinical indication); or iterative reconstruction. COMPARISON: CT head wo con* [id number] 12/28/2016 1:46 PM RADIATION DOSE METRICS: Total DLP (mGy-cm): 4340096313 FINDINGS: Brain: Normal. No hemorrhage. Unremarkable white matter. No mass effect. Cerebral ventricles: No ventriculomegaly. Bones/joints: Unremarkable. No acute fracture. Paranasal sinuses: Mild mucosal thickening and fluid is seen within the ethmoidal sinuses bilaterally. Mastoid air cells: Visualized mastoid air cells are well aerated. Soft tissues: Unremarkable. CT/CT head wo con* [id number] IMPRESSION: There are no acute intracranial findings. Stable head CT compared with 12/28/2016. Radiation Dose CTDIVOL = (mGy): DLP = 3927574292 (mGy-cm) Dictated By:Rj Owen MDSigned By:Rj Owen MDSigned Date/Time:03/21/21D/ 8 Discharge Plan Discharge Patient Disposition: Home Clinical Impression: Pain, Adult failure to thrive Dementia Qualifiers: Dementia type: unspecified type Dementia behavioral disturbance: without behavioral disturbance Qualified Code(s): F03.90 - Unspecified dementia without behavioral disturbance UTI (urinary tract infection) Qualifiers: Urinary tract infection type: acute cystitis Hematuria presence: with hematuria Qualified Code(s): N30.01 - Acute cystitis with hematuria Condition: Stable Prescriptions: New Neurontin 100 mg capsule 100 mg PO BID Qty: 60 RF: 0 Cipro 500 mg tablet 500 mg PO BID Qty: 20 RF: 0 No Action levetiracetam [Keppra] 250 mg tablet 250 mg PO BID RF: 0 albuterol sulfate [Ventolin HFA] 90 mcg/actuation HFA aerosol inhaler 2 puff INHALATION Q4H PRN (Reason: Shortness Of Breath) RF: 0 sumatriptan succinate 100 mg tablet 100 mg PO Q2H PRNRF: 0 Anoro Ellipta 62.5-25 mcg/actuation blister with device 1 inh inhalation Q24H 30 Days Qty: 60 RF: 4 quetiapine [Seroquel] 25 mg tablet 25 mg PO .evening Qty: 30 RF: 1 omeprazole 20 mg capsule,delayed release(DR/EC) 20 mg PO BID Qty: 60 RF: 2 hydroxyzine HCl 25 mg tablet 25 mg PO BID PRN (Reason: anxiety) Qty: 180 RF: 2 mirtazapine [Remeron] 15 mg tablet 15 mg PO .bedtime Qty: 90 RF: 2 oxycodone-acetaminophen [Percocet] 7.5-325 mg Tablet 1 tab PO TID PRN (Reason: Pain) RF: 0 Discharge Orders: Discharge ED (Routine); Ordered 03/21/21 Ordered By: Rosemary Burks Referrals: Katerine Salcedo DO [Primary Care Provider] - Discharge Diet: Advance as tolerated Discharge Activity: Limit activity as instructed Patient Instructions: Failure to Thrive (ED), Urinary Tract Infection in Men (ED), Dementia (ED), Opioid Safety Activity Restrictions/Additional Instructions: director of creative services will be contacting you tomorrow for follow-up regarding hospice care Follow-up with Dr. Conn/Dr. Salcedo next week without fail for further recommendations regarding failure to thrive 1 can of Ensure daily has been prescribed Return to the emergency department if concerning symptoms occur Encourage frequent meals Administer Percocet as prescribed for pain Coding Level of Care Code ED Intensive Care Unit Registered Nurse for Chg Fwd Exam Comprehensive
--- NOTE | 2021-03-21 02:05 | CTR_ITS ---
PROCEDURE INFORMATION: Exam: CT Head Without Contrast Exam date and time: 03/21/2021 2:12 AM Age: 55 years old Clinical indication: Pain; Headache not specified; Patient HX: Headache with maliase; Additional info: Read/ weakness TECHNIQUE: Imaging protocol: Computed tomography of the head without contrast. Radiation optimization: All CT scans at this facility use at least one of these dose optimization techniques: automated exposure control; mA and/or kV adjustment per patient size (includes targeted exams where dose is matched to clinical indication); or iterative reconstruction. COMPARISON: CT head wo con* [id number] 12/28/2016 1:46 PM RADIATION DOSE METRICS: Total DLP (mGy-cm): 8409538649 FINDINGS: Brain: Normal. No hemorrhage. Unremarkable white matter. No mass effect. Cerebral ventricles: No ventriculomegaly. Bones/joints: Unremarkable. No acute fracture. Paranasal sinuses: Mild mucosal thickening and fluid is seen within the ethmoidal sinuses bilaterally. Mastoid air cells: Visualized mastoid air cells are well aerated. Soft tissues: Unremarkable. CT/CT head wo con* [id number] IMPRESSION: There are no acute intracranial findings. Stable head CT compared with 12/28/2016. Radiation Dose CTDIVOL = (mGy): DLP = 9393451547 (mGy-cm)
[2021-03-21 02:30] VITALS: BP 112/72; PULSE 56; RESP 14; O2SAT 96
[2021-03-21 02:58] LABS: C Reactive Protein 1.5 mg/L (0.0-4.9)
[2021-03-21 03:29] LABS: Troponin 5 2HR 7.15 ng/L (0-15); Troponin 5 2HR Delta 0.15 ABS# (0-10)
[2021-03-21 03:32] VITALS: PULSE 54; RESP 14; O2SAT 96
[2021-03-21 03:33] VITALS: RESP 18
[2021-03-21] MEDS: oxyCODONE-APAP 5-325 mg Tablet 1 TAB PO (03:33)
[2021-03-21 03:38] VITALS: BP 116/70; PULSE 58; RESP 16; O2SAT 96
--- NOTE | 2021-03-25 10:48 | DCPLANNER ---
sales and marketing manager had message to speak with patient about hospice care. sales and marketing manager called phone number [phone], unable to speak with anyone at this time, a voicemail was left for patient to return therapeutic case manager phone call.
== END 2021-03-21 03:39 | disposition home or self-care (01) ==
PROVIDERS: Emergency Provider Nurse Practitioner Family; PCP Family Medicine
DX: R53.81 Other malaise (principal); N30.01 Acute cystitis with hematuria; R62.7 Adult failure to thrive; R52 Pain, unspecified; J44.9 Chronic obstructive pulmonary disease, unspecified; G20 Parkinson's disease; F02.80 Dementia in other diseases classified elsewhere, unspecified severity, without behavioral disturbance, psychotic disturbance, mood disturbance, and anxiety; F17.210 Nicotine dependence, cigarettes, uncomplicated
CPT/HCPCS: 36415; 70450; 71045; 74177; 80053; 81001; 82550; 83605; 83690; 84484; 85025; 86140; 99284; J7040; Q9967

== ENCOUNTER → 2021-04-02 08:14 | Outpatient (BNVA) | payer OTHER, SELFPAY | PROVIDERS: PCP Family Medicine; Visit Provider Nurse Practitioner Psychiatric/Mental Health | DX: F31.63 Bipolar disorder, current episode mixed, severe, without psychotic features (principal); F02.80 Dementia in other diseases classified elsewhere, unspecified severity, without behavioral disturbance, psychotic disturbance, mood disturbance, and anxiety; F17.210 Nicotine dependence, cigarettes, uncomplicated | CPT/HCPCS: 99214 ==

== ENCOUNTER → 2021-05-29 07:17 | Outpatient (BNVA) | payer MEDICARE, MEDICAID, SELFPAY | PROVIDERS: PCP Family Medicine; Visit Provider Nurse Practitioner Psychiatric/Mental Health | DX: F31.63 Bipolar disorder, current episode mixed, severe, without psychotic features (principal); F02.80 Dementia in other diseases classified elsewhere, unspecified severity, without behavioral disturbance, psychotic disturbance, mood disturbance, and anxiety; F17.210 Nicotine dependence, cigarettes, uncomplicated | CPT/HCPCS: 99214 ==

== ENCOUNTER → 2021-07-14 15:13 | Outpatient (BNVA) | payer MEDICARE, MEDICAID, SELFPAY | PROVIDERS: PCP Family Medicine; Visit Provider Family Medicine | DX: Z20.822 Contact with and (suspected) exposure to COVID-19 (principal); R60.0 Localized edema; Z11.52 Encounter for screening for COVID-19; J06.9 Acute upper respiratory infection, unspecified | CPT/HCPCS: 80053; 87426 ==

== ENCOUNTER → 2021-08-08 07:28 | Outpatient (BNVA) | payer MEDICARE, MEDICAID, SELFPAY | PROVIDERS: PCP Family Medicine; Visit Provider Nurse Practitioner Psychiatric/Mental Health | DX: F31.63 Bipolar disorder, current episode mixed, severe, without psychotic features (principal); F02.80 Dementia in other diseases classified elsewhere, unspecified severity, without behavioral disturbance, psychotic disturbance, mood disturbance, and anxiety; F17.210 Nicotine dependence, cigarettes, uncomplicated | CPT/HCPCS: 99214 ==

== ENCOUNTER 2021-08-28 06:00 | Outpatient (RCR) | payer MEDICARE, MEDICAID, SELFPAY | END 2021-09-21 23:59 | disposition home or self-care (01) | LOC: SPT 06:00 | PROVIDERS: PCP Family Medicine; Referring Provider Psychiatry & Neurology Neurology; Visit Provider Psychiatry & Neurology Neurology | DX: G20 Parkinson's disease (principal) | CPT/HCPCS: 97110; 97112; 97162 ==

== ENCOUNTER 2021-09-22 06:00 | Outpatient (RCR) | payer MEDICARE, MEDICAID, SELFPAY | END 2021-10-21 23:59 | disposition home or self-care (01) | LOC: SPT 06:00 | PROVIDERS: PCP Family Medicine; Referring Provider Psychiatry & Neurology Neurology; Visit Provider Psychiatry & Neurology Neurology | DX: G20 Parkinson's disease (principal) | CPT/HCPCS: 97110; 97112 ==

== ENCOUNTER → 2021-09-29 08:30 | Outpatient (BNVA) | payer MEDICARE, MEDICAID, SELFPAY | PROVIDERS: PCP Family Medicine; Visit Provider Nurse Practitioner Psychiatric/Mental Health | DX: F31.63 Bipolar disorder, current episode mixed, severe, without psychotic features (principal); F02.80 Dementia in other diseases classified elsewhere, unspecified severity, without behavioral disturbance, psychotic disturbance, mood disturbance, and anxiety; F17.210 Nicotine dependence, cigarettes, uncomplicated | CPT/HCPCS: 99214 ==

== ENCOUNTER → 2021-10-27 14:15 | Outpatient (BNVA) | payer MEDICARE, MEDICAID, SELFPAY | PROVIDERS: PCP Family Medicine; Visit Provider Nurse Practitioner Psychiatric/Mental Health | DX: F31.63 Bipolar disorder, current episode mixed, severe, without psychotic features (principal); F02.80 Dementia in other diseases classified elsewhere, unspecified severity, without behavioral disturbance, psychotic disturbance, mood disturbance, and anxiety; F17.210 Nicotine dependence, cigarettes, uncomplicated | CPT/HCPCS: 99214 ==

== ENCOUNTER 2021-10-28 14:15 | Outpatient (RCR) | payer MEDICARE, MEDICAID, SELFPAY | END 2021-11-07 23:00 | disposition home or self-care (01) | LOC: SPT 14:15 | PROVIDERS: PCP Family Medicine; Referring Provider Psychiatry & Neurology Neurology; Visit Provider Psychiatry & Neurology Neurology | DX: G20 Parkinson's disease (principal) | CPT/HCPCS: 97110; 97112 ==

== ENCOUNTER 2021-11-11 16:15 | Outpatient (CLI) | payer MEDICARE, MEDICAID, SELFPAY | END 2021-11-11 16:16 | disposition home or self-care (01) | LOC: SLEEP 16:18 | PROVIDERS: PCP Family Medicine; Visit Provider Internal Medicine Critical Care Medicine | DX: R53.83 Other fatigue (principal); R40.0 Somnolence | CPT/HCPCS: 94762 ==

== ENCOUNTER → 2022-01-16 13:05 | Outpatient (BNVA) | payer MEDICARE, MEDICAID, SELFPAY | PROVIDERS: PCP Family Medicine; Visit Provider Podiatrist Foot & Ankle Surgery | DX: M25.571 Pain in right ankle and joints of right foot (principal); M79.671 Pain in right foot | CPT/HCPCS: 73610; 73630 ==

== ENCOUNTER → 2022-02-19 13:04 | Outpatient (BNVA) | payer MEDICARE, MEDICAID, SELFPAY | PROVIDERS: PCP Family Medicine; Visit Provider Internal Medicine Critical Care Medicine | DX: G47.33 Obstructive sleep apnea (adult) (pediatric) (principal); J44.1 Chronic obstructive pulmonary disease with (acute) exacerbation; F17.219 Nicotine dependence, cigarettes, with unspecified nicotine-induced disorders; K21.9 Gastro-esophageal reflux disease without esophagitis | CPT/HCPCS: 99213 ==

== ENCOUNTER → 2022-02-27 12:58 | Outpatient (BNVA) | payer MEDICARE, MEDICAID, SELFPAY | PROVIDERS: PCP Family Medicine; Visit Provider Podiatrist Foot & Ankle Surgery | DX: G57.91 Unspecified mononeuropathy of right lower limb (principal); M19.071 Primary osteoarthritis, right ankle and foot; L60.3 Nail dystrophy; M67.471 Ganglion, right ankle and foot; F17.210 Nicotine dependence, cigarettes, uncomplicated | CPT/HCPCS: 99214 ==

== ENCOUNTER → 2022-04-07 14:22 | Outpatient (BNVA) | payer MEDICARE, MEDICAID, SELFPAY | PROVIDERS: PCP Family Medicine; Visit Provider Nurse Practitioner Psychiatric/Mental Health | DX: F31.63 Bipolar disorder, current episode mixed, severe, without psychotic features (principal); F02.80 Dementia in other diseases classified elsewhere, unspecified severity, without behavioral disturbance, psychotic disturbance, mood disturbance, and anxiety; F17.210 Nicotine dependence, cigarettes, uncomplicated; F12.20 Cannabis dependence, uncomplicated | CPT/HCPCS: 99214 ==

== ENCOUNTER → 2022-04-11 09:02 | Outpatient (BNVA) | payer MEDICARE, MEDICAID, SELFPAY | PROVIDERS: PCP Family Medicine; Visit Provider Podiatrist Foot & Ankle Surgery | DX: M67.471 Ganglion, right ankle and foot (principal); M79.671 Pain in right foot | CPT/HCPCS: 27630; 88304; A6446 ==

== ENCOUNTER → 2022-04-28 14:33 | Outpatient (BNVA) | payer MEDICARE, MEDICAID, SELFPAY | PROVIDERS: PCP Family Medicine; Visit Provider Family Medicine | DX: M25.571 Pain in right ankle and joints of right foot (principal) | CPT/HCPCS: 84550; 85025; 85651; 86140 ==

== ENCOUNTER 2022-04-30 15:52 | Inpatient (IN) | payer MEDICARE, MEDICAID, SELFPAY ==
--- NOTE | 2022-04-30 16:09 | W.ED.GENADLT ---
HPI - General Adult General: Stated complaint: 96 Time Seen by Provider: 04/30/22 16:05 History of Present Illness: HPI: [56]yo patient w/ hx of COPD, bipolar disorder, parksinon's disease, diverticulosis BIBA for psychosis and auditory hallucination. He has a court order filed against him stating that he is unable to take care of himself due to psychosis and auditory hallucination. On arrival, the patient is AAOx3 and cooperative with my evaluation. No focal complaints of chest pain, shortness of breath, palpitations, N/V, focal GI/ complaints. Currently denies SI/HI. Onset: unknown Duration: ongoing Location: home Severity: severe Associated symptoms: Deny chest pain, dyspnea, nausea, rash, palpitations or vomiting Review of Systems Const: Denies: fever(s) or chills Eyes: Denies: change in vision ENMT: Denies: mouth pain Card: Denies: chest pain or palpitations Resp: Denies: dyspnea or non-productive cough GI: Denies: abdominal pain, nausea, vomiting or diarrhea : Denies: dysuria Musc: Denies: extremity pain Skin/Breast: Denies: rash or new lesions Neuro: Denies: weakness in extremities Psych: Reports: other (Normal mood) Venancio/Lymph: Denies: easy bruising PFSH ED PFSH: Medical History Abdominal pain Bipolar 1 disorder, mixed, severe provisional Cannabis dependence with current use Chronic GERD COPD (chronic obstructive pulmonary disease) Diverticulosis Enrolled in chronic care management Major neurocognitive disorder due to multiple etiologies MCI (mild cognitive impairment) Migraine headache Nicotine dependence, cigarettes, uncomplicated BRIANDA (obstructive sleep apnea) Parkinson's disease dementia Psychiatric care RLS (restless legs syndrome) Surgical History H/O shoulder surgery History of back surgery S/P hernia repair S/P insertion of spinal cord stimulator Family History Other CAD (coronary artery disease) Cancer Dementia Social History Smoking and tobacco status: current every day smoker cigarettes Packs smoked per day: 1 Years cigarettes smoked: 35 Quit status (tobacco): considering quitting Second hand smoke exposure: Yes Smoking risk assessment/counseling performed?: Yes Alcohol intake: former Counseling given: No Counseling given: No Lives independently: Yes Household members: significant other Current occupational status: disabled History of recent travel: No Current gender identity: Male Physical Exam Const: COMMON NORMALS: alert HENMT: COMMON NORMALS: atraumatic HEAD & SCALP: atraumatic MOUTH: moist mucous membranes not abnormal Eye: COMMON NORMALS: EOMs intact bilaterally and conjunctivae normal CONJUNCTIVA: Yes conjunctivae normal Neck/C-Spine: COMMON NORMALS: full ROM and supple Resp: COMMON NORMALS: normal respiratory effort and clear to auscultation bilaterally AUSCULTATION: clear to auscultation bilaterally Cardio: COMMON NORMALS: regular rate RATE: regular rate GI: COMMON NORMALS: Soft to palpation and non-tender PALPATION: Yes Soft to palpation Extremity: COMMON NORMALS: full ROM Neuro: SENSORIUM/ORIENTATION: Yes alert MOTOR EXAM: No Abnormal motor strength present and Other motor observations present (no focal motor deficits) Psych: COMMON NORMALS: speech normal SPEECH: Yes normal speech MOOD & AFFECT: Yes euthymic mood MDM - General Adult Medical Decision Making [56]yo patient w/ hx of bipolar disorder presenting for auditory hallucination and psychosis. HDS, exam within normal limit Thoughts are linear and organized, and the patient has no SI/HI, or visual hallucinations. Clinically the patient displays no overt toxidrome; they are well appearing, with low suspicion for toxic ingestion given history and exam. Symptoms unlikely 2/2 anemia, hypothyroidism, infection, or ICH. Workup: CBC, CMP, Lipase, salicylate/tylenol, TSH/free T4, UDS Lab findings: wnl [5:40pm] On reassessment, labs and workup wnl. Patient is hemodynamically stable with no acute medical complaints. Case discussed with psychiatric provider Dr. Khan at [facility] psych inpatient with recommendation for admission Disposition: Psych Discharge Plan Discharge Patient Disposition: Admitted As Inpatient Clinical Impression: Psychosis, Auditory hallucination Condition: Stable Coding Level of Care Code ED [employer] Technical Advisor for Angela Fernandez
[2022-04-30 16:36] LABS: Basophils % 0.5 %; Eosinophils # 0.1 10^3/uL (0.0-0.8); Eosinophils % 1.3 %; Hemoglobin 14.8 g/dL (11.7-16.6); Lymphocytes # 1.4 10^3/uL (0.8-4.8); Lymphocytes % 25.3 %; Mean Corpuscular HGB Conc 34.4 g/dL (30.0-36.0); Mean Corpuscular Hemoglobin 30.3 pg (28.0-34.0); Mean Corpuscular Volume 87.9 fl (80-94); Mean Platelet Volume 10.6 fL (7.4-10.4); Monocytes # 0.3 10^3/uL (0.2-0.9); Neutrophils % 66.7 %; Nucleated Red Blood Cells % 0 %; Platelet Count 180 10^3/cmm (130-400); Red Blood Count 4.89 10^6/uL (4.1-5.3); Red Cell Distribution Width 13.4 % (12.1-15.1); White Blood Count 5.5 10^3/uL (4.0-10.0)
[2022-04-30 17:09] LABS: Alanine Aminotransferase 14 U/L (0-41); Albumin Level 4.6 g/dL (3.5-5.2); Alkaline Phosphatase 86 IU/L (40-130); Anion Gap 16.9 (5-19); Aspartate Amino Transferase 19 U/L (0-40); Blood Urea Nitrogen 9 mg/dL (6-20); Calcium 9.8 mg/dL (8.5-10.5); Carbon Dioxide 24 mmol/L (22-29); Chloride 104 mmol/L (98-107); Free T4 Free Thyroxine 1.11 ng/dL (0.82-1.77); Globulin 2.4 g/dL (1.3-4.6); Glomerular Filtration Rate 100.7 mL/min (90-130); Glucose 100 mg/dL (65-115); Lipase 18 U/L (13-60); Osmolality Calculated 291 mOsm/kg (285-295); Potassium 3.9 mmol/L (3.5-5.1); Sodium 141 mmol/L (136-145); Thyroid Stimulating Hormone 0.56 uIU/mL (0.27-4.20); Total Bilirubin 0.4 mg/dL (0.15-1.2)
[2022-04-30 17:10] LABS: Acetaminophen < 5.0 ug/mL (10-30); Salicylate < 0.3 mg/dL (3-10)
[2022-04-30] MEDS: nicotine 4 mg lozenge MUCOUS MEM (20:40)
[2022-04-30 20:45] VITALS: BP 128/80; PULSE 90; RESP 20; TEMP 36.6; O2SAT 98
[2022-04-30 20:56] LABS: Amphetamines Screen Urine Negative (Negative); Barbiturates Screen Urine Negative (Negative); Benzodiazepines Screen Urine Negative (Negative); Cocaine Screen Urine Negative (Negative); Opiate Screen Urine Positive (Negative); PCP Screen Urine Negative (Negative); THC Screen Urine Positive (Negative)
[2022-04-30] MEDS: SUMAtriptan 25 mg Tablet 100 MG PO (21:21)
[2022-04-30] MEDS: baclofen 10 mg Tablet 20 MG PO (21:22)
[2022-04-30] MEDS: hyDROXYzine 25 mg Capsule 50 MG PO (21:22)
[2022-04-30] MEDS: mirtazapine 15 mg Tablet PO (21:22)
[2022-04-30] MEDS: gabapentin 300 mg Capsule PO (21:22)
[2022-04-30] MEDS: meloxicam 7.5 mg tablet 15 MG PO (21:22)
[2022-04-30 21:57] VITALS: RESP 17
[2022-04-30] MEDS: morphine IR 15 mg Tablet PO (21:57)
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
[2022-05-01] VITALS (7 sets, daily range): BP systolic 111–135; BP diastolic 62–79; PULSE 75–86; RESP 16–18; TEMP 36.6–36.8; O2SAT 94–100
[2022-05-01] MEDS: morphine ER (12 HR) 15 mg Tablet PO ×3 (06:25→21:02)
[2022-05-01] MEDS: hyDROXYzine 25 mg Capsule 50 MG PO ×2 (06:54→13:24)
[2022-05-01] MEDS: SUMAtriptan 25 mg Tablet 100 MG PO (07:22)
[2022-05-01] MEDS: baclofen 10 mg Tablet 20 MG PO ×3 (08:34→20:31)
[2022-05-01] MEDS: morphine IR 15 mg Tablet PO ×3 (08:35→21:02)
[2022-05-01] MEDS: levETIRAcetam 500 mg Tablet 250 MG PO ×2 (08:35→18:28)
[2022-05-01] MEDS: memantine 5 mg tablet 10 MG PO ×2 (08:36→18:28)
[2022-05-01] MEDS: nicotine 4 mg lozenge MUCOUS MEM (08:36)
[2022-05-01] MEDS: pantoprazole DR 40 mg Tablet PO (08:36)
[2022-05-01] MEDS: gabapentin 300 mg Capsule PO ×3 (08:36→20:31)
[2022-05-01] MEDS: ondansetron 4 MG Tablet PO ×2 (08:56→14:22)
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
[2022-05-01] MEDS: nicotine 21 mg Patch 1 PATCH TRANSDERMA (12:59)
[2022-05-01] MEDS: albuterol 8 gm MDI 2 PUFF INHALATION (13:13)
[2022-05-01] MEDS: OLANZapine 5 mg ODT PO (14:23)
[2022-05-01] MEDS: mirtazapine 15 mg Tablet PO (20:31)
[2022-05-01] MEDS: meloxicam 7.5 mg tablet 15 MG PO (20:31)
[2022-05-02 06:00] VITALS: BP 106/71; PULSE 70; RESP 18; O2SAT 97
[2022-05-02 06:19] VITALS: RESP 18
[2022-05-02] MEDS: morphine IR 15 mg Tablet PO (06:19)
[2022-05-02] MEDS: morphine ER (12 HR) 15 mg Tablet PO (06:20)
[2022-05-02] MEDS: pantoprazole DR 40 mg Tablet PO (08:36)
[2022-05-02] MEDS: memantine 5 mg tablet 10 MG PO (08:36)
[2022-05-02] MEDS: baclofen 10 mg Tablet 20 MG PO (08:36)
[2022-05-02] MEDS: gabapentin 300 mg Capsule PO (08:37)
[2022-05-02] MEDS: levETIRAcetam 500 mg Tablet 250 MG PO (08:37)
[2022-05-02] MEDS: hyDROXYzine 25 mg Capsule 50 MG PO (09:01)
--- NOTE | 2022-05-02 09:47 | PC.NURSE ---
PT DENIES SI/HI AND AVH AT THIS TIME. REPORTS PAIN 4/10 GENERALIZED. STATES HE RECEIVED MORPHINE THIS AM AND IT WAS EFFECTIVE. STATES HE IS ALWAYS IN PAIN. VISTARIL GIVEN FOR ANXIETY THIS AM. SUPPORT VOICED.
[2022-05-02 10:23] VITALS: PULSE 89; RESP 16; O2SAT 95
[2022-05-02] MEDS: nicotine 21 mg Patch 1 PATCH TRANSDERMA (10:23)
[2022-05-02] MEDS: OLANZapine 5 mg ODT PO (11:57)
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
[2022-05-02 13:16] VITALS: PULSE 89; RESP 16; TEMP 37.1; O2SAT 95
== END 2022-05-02 13:28 | disposition home or self-care (01) | DRG 885 ==
LOC: ER 16:08 → NP 18:52
PROVIDERS: Admitting Provider Psychiatry & Neurology Psychiatry; Emergency Provider Emergency Medicine; PCP Family Medicine; Visit Provider Psychiatry & Neurology Psychiatry
DX: F31.63 Bipolar disorder, current episode mixed, severe, without psychotic features (principal); J44.9 Chronic obstructive pulmonary disease, unspecified; G20 Parkinson's disease; F02.80 Dementia in other diseases classified elsewhere, unspecified severity, without behavioral disturbance, psychotic disturbance, mood disturbance, and anxiety; F17.210 Nicotine dependence, cigarettes, uncomplicated; F12.20 Cannabis dependence, uncomplicated
CPT/HCPCS: 80053; 80306; 80307; 83690; 84439; 84443; 84550; 85025; 85651; 86140; 94640; 97165; 99285; J3535; Q0162

== ENCOUNTER → 2022-05-06 13:24 | Outpatient (BNVA) | payer MEDICARE, MEDICAID, SELFPAY | PROVIDERS: PCP Family Medicine; Visit Provider Nurse Practitioner Psychiatric/Mental Health | DX: F31.63 Bipolar disorder, current episode mixed, severe, without psychotic features (principal); F02.80 Dementia in other diseases classified elsewhere, unspecified severity, without behavioral disturbance, psychotic disturbance, mood disturbance, and anxiety; F17.210 Nicotine dependence, cigarettes, uncomplicated; F12.20 Cannabis dependence, uncomplicated | CPT/HCPCS: 99214 ==

== ENCOUNTER 2022-07-08 07:26 | Emergency (ER) | payer MEDICARE, MEDICAID, SELFPAY ==
[2022-07-08 07:30] VITALS: BP 131/72; PULSE 105; RESP 16; TEMP 36.7; O2SAT 94; BMI 23.5
[2022-07-08 07:49] VITALS: BP 119/71; PULSE 73; RESP 20; O2SAT 94
--- NOTE | 2022-07-08 08:11 | ED_ITS ---
HPI - Back Pain/Injury General: Chief Complaint: Back Pain/Injury Stated Complaint: In pain all over Time Seen by Provider: 07/08/22 07:28 Source: patient Mode of arrival: ambulatory History of Present Illness: 56-year-old male presents emergency room with complaints of chronic back pain. He is usually seen at the pain clinic he tells me that they recently decreased his narcotics dose and he is having worsening pain he repeatedly denies any new trauma falls or injury. He has chronic back pain with radiation of pain into his right upper leg but worsening is all been related to the decrease in narcotic pain medications. He had presented to the emergency room hoping to have his prescription rewritten as he had previously received. MD elicited complaint: back pain Pertinent past history: prior back pain Timing: constant Similar Symptoms Previously: Yes Location: lumbar spine Radiation: right upper leg and right leg below the knee Exacerbating factors: movement, sitting upright and walking Relieving factors: none Associated symptoms: Reports difficulty walking and weakness; Deny abdominal pain, arthralgias, chills, change in bowel habits, dysuria, fatigue, fecal incontinence, fever(s), hematuria, myalgias, nausea, numbness, syncope, tingling/numbness/burning, urinary frequency, urinary urgency or vomiting Review of Systems Const: Denies: fever(s), chills, fatigue or malaise ENMT: Denies: throat pain, ear or mastoid pain, nasal discharge or nasal congestion Card: Denies: syncope Resp: Denies: dyspnea, productive cough or non-productive cough GI: Denies: abdominal pain, nausea, vomiting, fecal incontinence or change in bowel habits : Denies: flank pain, difficulty urinating, dysuria, urinary frequency, urinary urgency or hematuria Musc: Reports: back pain and extremity pain Skin/Breast: Denies: rash or pruritus Neuro: Reports: difficulty walking PFSH ED PFSH: Medical History Abdominal pain Bipolar 1 disorder, mixed, severe provisional Cannabis dependence with current use medical marijuana card Chronic GERD COPD (chronic obstructive pulmonary disease) Diverticulosis Enrolled in chronic care management Major neurocognitive disorder due to multiple etiologies MCI (mild cognitive impairment) Migraine headache Nicotine dependence, cigarettes, uncomplicated BRIANDA (obstructive sleep apnea) Parkinson's disease dementia Psychiatric care RLS (restless legs syndrome) Surgical History H/O shoulder surgery History of back surgery S/P hernia repair S/P insertion of spinal cord stimulator Family History Other CAD (coronary artery disease) Cancer Dementia Social History Smoking and tobacco status: current every day smoker cigarettes Packs smoked per day: 1 Years cigarettes smoked: 35 Quit status (tobacco): considering quitting Second hand smoke exposure: Yes Smoking risk assessment/counseling performed?: Yes Alcohol intake: former Counseling given: No Counseling given: No Lives independently: Yes Household members: significant other Current occupational status: disabled History of recent travel: No Current gender identity: Male Physical Exam Const: COMMON NORMALS: no acute distress GENERAL APPEARANCE: cooperative and comfortable ORIENTATION/CONSCIOUSNESS: Yes awake Course Vital Signs: Vital signs: Vital Signs Temperature 98.0 F 07/08/22 07:30 Pulse Rate 73 07/08/22 07:49 Respiratory Rate 20 H 07/08/22 07:49 Blood Pressure 119/71 07/08/22 07:49 Pulse Oximetry 94 07/08/22 07:49 Oxygen Delivery Me thod 07/08/22 07:49 MDM - Back Pain/Injury Medical Decision Making No significant or new changes per the patient there is no trauma or no precipitating events or worsened other than change in his pain medications. Discussed with the patient that we generally do not treat chronic pain in the e mergency room and we would not be able to administer any narcotics at this visit or prescribe any new or different narcotics at different dosages or quantities. Encouraged him to follow-up with his pain clinic. If we were to prescribe narcotics here that would put him in violation of his pain contract then he would not be able to be seen there and would not receive any pain medications. Medical Records I reviewed the patient's medical records. Labs I reviewed the patient's lab results. Discharge Plan Discharge Patient Disposition: Home Clinical Impression: Chronic back pain Condition: Stable Prescriptions: No Action levetiracetam [Keppra] 250 mg tablet 250 mg PO BID baclofen 20 mg tablet 20 mg PO TID Anoro Ellipta 62.5-25 mcg/actuation blister with device 1 inh inhalation Q24H 30 Days Qty: 60 6RF hydroxyzine HCl 50 mg tablet 50 mg PO BID PRN (Reason: anxiety) Qty: 180 1RF Rx Instructions: Take one tablet twice per day as needed for anxiety sumatriptan succinate [Imitrex] 100 mg tablet 100 mg PO DAILY PRN (Reason: Migraine Headache) memantine [Namenda] 10 mg tablet 10 mg PO BID Nuedexta 20-10 mg capsule 1 cap PO BID allopurinol 300 mg tablet 150 mg PO DAILY benztropine 1 mg tablet 1 mg PO BID miscellaneous medical supply Kit See Rx Instructions miscellaneous .COMPLEX Qty: 1 0RF Rx Instructions: CPAP/auto with humidifier [id number] mask, tubing, chin strap, filter and other supplies needed Diagnosis G47.33 length of need 99 Lifetime albuterol sulfate [Ventolin HFA] 90 mcg/actuation HFA aerosol inhaler 2 puff INHALATION Q4H PRN (Reason: Shortness Of Breath) Qty: 8.5 3RF gabapentin 300 mg capsule See Rx Instructions .ROUTE .COMPLEX Qty: 90 2RF Dose Instruction: take 1 capsule BY MOUTH THREE TIMES DAILY Rx Instructions: take 1 capsule BY MOUTH THREE TIMES DAILY omeprazole 20 mg capsule,delayed release(DR/EC) See Rx Instructions .ROUTE .COMPLEX Qty: 60 2RF Dose Instruction: take 1 capsule BY MOUTH TWICE DAILY Rx Instructions: take 1 capsule BY MOUTH TWICE DAILY meloxicam 15 mg tablet See Rx Instructions .ROUTE .COMPLEX Qty: 30 0RF Dose Instruction: TAKE 1 TABLET BY MOUTH EVERY DAY with food * needs appointment FOR further refills * Rx Instructions: TAKE 1 TABLET BY MOUTH EVERY DAY with food * needs appointment FOR further refills * risperidone [Risperdal] 0.5 mg tablet 0.5 mg PO BEDTIME Qty: 30 1RF Rx Instructions: Take one tablet at bedtime Discharge Orders: Discharge ED (Routine); Ordered 07/08/22 Ordered By: Sanchez Wild Referrals: Katerine Salcedo DO [Primary Care Provider] - Patient Instructions: Opioid Safety Activity Restrictions/Additional Instructions: Follow-up with the pain clinic for further management of your chronic back pain. Coding Level of Care Code ED [employer] for Angela Fernandez
[2022-07-08 08:18] VITALS: BP 117/71; PULSE 78; RESP 18; O2SAT 91
== END 2022-07-08 08:20 | disposition home or self-care (01) ==
PROVIDERS: Emergency Provider Family Medicine; PCP Family Medicine
DX: G89.29 Other chronic pain (principal); M54.9 Dorsalgia, unspecified; F17.210 Nicotine dependence, cigarettes, uncomplicated; J44.9 Chronic obstructive pulmonary disease, unspecified; G20 Parkinson's disease
CPT/HCPCS: 99281

== ENCOUNTER 2022-08-20 13:32 | Emergency (ER) | payer MEDICARE, MEDICAID, SELFPAY ==
[2022-08-20 13:45] VITALS: BP 166/85; PULSE 91; RESP 16; TEMP 36.7; O2SAT 98
--- NOTE | 2022-08-20 13:52 | ED.C_ITS ---
HPI - Psych General: Chief Complaint: Psychiatric Symptoms Stated Complaint: CHARAN SALDAÑA Time Seen by Provider: 08/20/22 13:50 Source: patient Mode of arrival: ambulatory History of Present Illness: 56-year-old male presents emergency room complaining of anxiety and difficulty sleeping. Evidently has been a longstanding issue has had medications adjusted several times over the last several months per his report at [facility] he is usually seen there. He is on risperidone 1 mg twice daily and originally started on half milligram and increase it to a full milligram. He tells me he is also taking something for sleep but he is not sure of the name of it. He states he is taken several medications in the past for sleep but he cannot tell me the names of them. Onset (ago): month(s) Duration: constant (Anxiety) History of same: Yes Relieving factors: none Exacerbating factors: none Associated symptoms: Deny auditory hallucinations, visual hallucinations, homicidal ideation or suicidal ideation Treatments prior to arrival: none Review of Systems Const: Denies: fever(s), chills, body aches, change in appetite, fatigue or malaise ENMT: Denies: throat pain, ear or mastoid pain, nasal discharge or nasal congestion Card: Denies: chest pain, edema, dyspnea on exertion or orthopnea Resp: Denies: dyspnea, productive cough or non-productive cough GI: Denies: abdominal pain, nausea, vomiting, hematemesis, coffee ground emesis, diarrhea, constipation, bloating, hematochezia or melena : Denies: flank pain, dysuria, urinary frequency or urinary urgency Skin/Breast: Denies: rash or pruritus Psych: Denies: visual hallucinations, auditory hallucinations, suicidal ideation or homicidal ideation PFS ED PFSH: Medical History Abdominal pain Bipolar 1 disorder, mixed, severe provisional Cannabis dependence with current use medical marijuana card Chronic GERD COPD (chronic obstructive pulmonary disease) Diverticulosis Enrolled in chronic care management Major neurocognitive disorder due to multiple etiologies MCI (mild cognitive impairment) Migraine headache Nicotine dependence, cigarettes, uncomplicated BRIANDA (obstructive sleep apnea) Parkinson's disease dementia Psychiatric care RLS (restless legs syndrome) Surgical History H/O shoulder surgery History of back surgery S/P hernia repair S/P insertion of spinal cord stimulator Family History Other CAD (coronary artery disease) Cancer Dementia Social History Smoking and tobacco status: current every day smoker cigarettes Packs smoked per day: 1 Years cigarettes smoked: 35 Quit status (tobacco): considering quitting Second hand smoke exposure: Yes Smoking risk assessment/counseling performed?: Yes Alcohol intake: former Counseling given: No Counseling given: No Lives independently: Yes Household members: significant other Current occupational status: disabled History of recent travel: No Current gender identity: Male Physical Exam Const: COMMON NORMALS: no acute distress GENERAL APPEARANCE: cooperative and comfortable ORIENTATION/CONSCIOUSNESS: Yes awake, Yes oriented to person, Yes oriented to place and Yes oriented to time HENMT: COMMON NORMALS: normocephalic, atraumatic and hearing grossly normal bilaterally HEAD & SCALP: normocephalic and atraumatic Resp: COMMON NORMALS: normal respiratory effort, No retractions, No use of accessory muscles and clear to auscultation bilaterally AUSCULTATION: clear to auscultation bilaterally Cardio: COMMON NORMALS: regular rate, regular rhythm and No murmurs present (Cardio) RATE: regular rate RHYTHM: regular rhythm Neuro: SENSORIUM/ORIENTATION: Yes oriented to person, Yes oriented to place and Yes oriented to time Skin: COMMON NORMALS: no rashes or lesions noted GENERAL SKIN EXAM: no rashes or lesions noted Course Vital Signs: Vital signs: Vital Signs Temperature 98.1 F 08/20/22 13:45 Pulse Rate 91 08/20/22 13:45 Respiratory Rate 16 08/20/22 13:45 Blood Pressure 166/85 08/20/22 13:45 Pulse Oximetry 98 08/20/22 13:45 Oxygen Delivery Me thod 08/20/22 13:45 MDM - Psych Medical Decision Making Patient is not demonstrating any anxiety here he is little frustrated with his medications. I do not have access to his office notes I do not know what has been tried and what has not at this point. We will increase his Risperdal to 3 times daily add trazodone encouraged him to follow-up at the [facility] clinic. Medical Records I reviewed the patient's medical records. Lab Data I reviewed the patient's lab results. Discharge Plan Discharge Patient Disposition: Home Clinical Impression: Anxiety Condition: Stable Prescriptions: New trazodone 50 mg tablet 50 mg PO .QHS Qty: 30 0RF Changed Risperdal 1 mg tablet 1 mg PO TID Qty: 60 1RF Rx Instructions: Take one tablet twice per day No Action levetiracetam [Keppra] 250 mg tablet 250 mg PO BID baclofen 20 mg tablet 20 mg PO TID Anoro Ellipta 62.5-25 mcg/actuation blister with device 1 inh inhalation Q24H 30 Days Qty: 60 6RF hydroxyzine HCl 50 mg tablet 50 mg PO BID PRN (Reason: anxiety) Qty: 180 1RF Rx Instructions: Take one tablet twice per day as needed for anxiety sumatriptan succinate [Imitrex] 100 mg tablet 100 mg PO DAILY PRN (Reason: Migraine Headache) memantine [Namenda] 10 mg tablet 10 mg PO BID Nuedexta 20-10 mg capsule 1 cap PO BID allopurinol 300 mg tablet 150 mg PO DAILY benztropine 1 mg tablet 1 mg PO BID miscellaneous medical supply Kit See Rx Instructions miscellaneous .COMPLEX Qty: 1 0RF Rx Instructions: CPAP/auto with humidifier [id number] mask, tubing, chin strap, filter and other supplies needed Diagnosis G47.33 length of need 99 Lifetime albuterol sulfate [Ventolin HFA] 90 mcg/actuation HFA aerosol inhaler 2 puff INHALATION Q4H PRN (Reason: Shortness Of Breath) Qty: 8.5 3RF gabapentin 300 mg capsule See Rx Instructions .ROUTE .COMPLEX Qty: 90 2RF Dose Instruction: take 1 capsule BY MOUTH THREE TIMES DAILY Rx Instructions: take 1 capsule BY MOUTH THREE TIMES DAILY omeprazole 20 mg capsule,delayed release(DR/EC) See Rx Instructions .ROUTE .COMPLEX Qty: 60 2RF Dose Instruction: take 1 capsule BY MOUTH TWICE DAILY Rx Instructions: take 1 capsule BY MOUTH TWICE DAILY meloxicam 15 mg tablet See Rx Instructions .ROUTE .COMPLEX Qty: 15 0RF Dose Instruction: TAKE 1 TABLET BY MOUTH EVERY DAY with food * needs appointment FOR further refills * Rx Instructions: TAKE 1 TABLET BY MOUTH EVERY DAY with food * needs appointment FOR further refills * Discharge Orders: Discharge ED (Routine); Ordered 08/20/22 Ordered By: Sanchez Wild Referrals: Katerine Salcedo DO [Primary Care Provider] - Patient Instructions: Opioid Safety, Pain Management Activity Restrictions/Additional Instructions: Follow-up at behavioral health clinic as soon as you are able. Coding Level of Care Code ED Mechanical Systems Designer for Angela Fernandez
--- NOTE | 2022-08-20 14:08 | PC.NURSE ---
requesting medication to help with anxiety and sleep. pt is calm and cooperative.
[2022-08-20] MEDS: risperiDONE 1 mg Tablet PO (14:15)
[2022-08-20 14:32] VITALS: BP 142/81; PULSE 79; RESP 16; O2SAT 96
== END 2022-08-20 14:35 | disposition home or self-care (01) ==
PROVIDERS: Emergency Provider Family Medicine; PCP Family Medicine
DX: F41.9 Anxiety disorder, unspecified (principal); F17.210 Nicotine dependence, cigarettes, uncomplicated; J44.9 Chronic obstructive pulmonary disease, unspecified; G20 Parkinson's disease; F02.80 Dementia in other diseases classified elsewhere, unspecified severity, without behavioral disturbance, psychotic disturbance, mood disturbance, and anxiety
CPT/HCPCS: 99283

== ENCOUNTER → 2022-09-07 10:50 | Outpatient (BNVA) | payer MEDICARE, MEDICAID, SELFPAY | PROVIDERS: PCP Family Medicine; Visit Provider Podiatrist Foot & Ankle Surgery | DX: R20.2 Paresthesia of skin (principal) | CPT/HCPCS: 99213 ==

== ENCOUNTER → 2022-09-11 11:58 | Outpatient (BNVA) | payer MEDICARE, MEDICAID, SELFPAY | PROVIDERS: PCP Family Medicine; Visit Provider Family Medicine | DX: R26.81 Unsteadiness on feet (principal); R35.1 Nocturia; F17.210 Nicotine dependence, cigarettes, uncomplicated; Z13.6 Encounter for screening for cardiovascular disorders; K57.90 Diverticulosis of intestine, part unspecified, without perforation or abscess without bleeding | CPT/HCPCS: 80053; 80061; 84153; 85025 ==

== ENCOUNTER 2022-11-03 20:37 | Emergency (ER) | payer MEDICARE, MEDICAID, SELFPAY ==
--- NOTE | 2022-11-03 20:46 | ECG_ITS ---
[facility] [place] Test Date: 2022-11-03 Pat Name: Cabrera Sherman Department: Room: Gender: Male Rn Visiting: : 1965 Requested By: Joslyn Corado Order Number: [id number] Yokasta MD: Lavonne Orozco M.D. Measurements Intervals [place] Rate: 67 P: 70 RI: 167 QRS: 64 QRSD: 89 T: 57 QT: 371 QTc: 394 Interpretive Statements SINUS RHYTHM POSSIBLE LEFT ATRIAL ENLARGEMENT [-0.1mV P-WAVE IN V1/V2] ST ELEVATION, PROBABLY EARLY REPOLARIZATION [ST ELEVATION WITH NORMALLY INFLECTED T-WAVE] Compared to ECG 12/27/2017 05:42:11 ST (T wave) deviation now present Early repolarization now present Electronically Signed On 11-04-2022 0:08:13 WORD PROCESSOR by Lavonne Oroczo M.D. [id number]
[2022-11-03 20:49] VITALS: BP 97/60; PULSE 67; RESP 16; TEMP 36.7; O2SAT 95; BMI 23.1
--- NOTE | 2022-11-03 20:56 | XRR_ITS ---
PROCEDURE INFORMATION: Exam: XR Chest Exam date and time: 11/03/2022 9:51 PM Age: 57 years old Clinical indication: Other: Syncope; Prior surgery; Surgery date: 6+ months TECHNIQUE: Imaging protocol: Radiologic exam of the chest. Views: 1 view. COMPARISON: CR XR chest 1V portable [id number] 03/21/2021 12:43 AM FINDINGS: Tubes, catheters and devices: The thoracic spinal stimulator leads are stable in position. Lungs: Mild background hyperinflation and emphysema are again noted. Pleural spaces: Unremarkable. No pleural effusion. No pneumothorax. Heart/Mediastinum: The cardiomediastinal silhouette is stable in appearance. Bones/joints: Mild degenerative changes of the spine are again noted. XR/XR chest 1V portable [id number] IMPRESSION: No new acute radiographic findings in the chest.
[2022-11-03 21:19] LABS: Basophils % 0.3 %; Eosinophils # 0.1 10^3/uL (0.0-0.8); Eosinophils % 1.6 %; Hematocrit 38.8 % (42.0-52.0); Lymphocytes # 1.7 10^3/uL (0.8-4.8); Lymphocytes % 29.7 %; Mean Corpuscular HGB Conc 33.5 g/dL (30.0-36.0); Mean Corpuscular Hemoglobin 31.1 pg (28.0-34.0); Mean Corpuscular Volume 92.8 fl (80-94); Mean Platelet Volume 10.4 fL (7.4-10.4); Monocytes # 0.5 10^3/uL (0.2-0.9); Monocytes % 8.6 %; Neutrophils # 3.42 10^3/uL (1.8-7.7); Neutrophils % 59.6 %; Nucleated Red Blood Cells % 0 %; Platelet Count 159 10^3/cmm (130-400); Red Blood Count 4.18 10^6/uL (4.1-5.3); Red Cell Distribution Width 14.2 % (12.1-15.1); White Blood Count 5.7 10^3/uL (4.0-10.0)
[2022-11-03 21:38] LABS: Troponin(5th) Baseline 7 ng/L (0-15)
[2022-11-03 21:39] LABS: Alanine Aminotransferase < 5 U/L (0-41); Albumin Level 4.4 g/dL (3.5-5.2); Alkaline Phosphatase 66 U/L (40-130); Anion Gap 15.7 (5-19); Aspartate Amino Transferase 13 U/L (0-40); Blood Urea Nitrogen 15 mg/dL (6-20); Calcium 9.7 mg/dL (8.5-10.5); Carbon Dioxide 26 mmol/L (22-29); Chloride 102 mmol/L (98-107); Globulin 1.9 g/dL (1.3-4.6); Glomerular Filtration Rate 57.3 mL/min (90-130); Glucose 106 mg/dL (65-115); Osmolality Calculated 291 mOsm/kg (285-295); Potassium 3.7 mmol/L (3.5-5.1); Sodium 140 mmol/L (136-145); Total Bilirubin 0.4 mg/dL (0.15-1.2); Total Protein 6.3 g/dL (6.6-8.7)
[2022-11-03] MEDS: sodium chloride 0.9% 1,000 ML 999 ML IV (22:16)
[2022-11-03] MEDS: ondansetron 2 mg/ML SDV 2 mL 4 MG IVP (22:31)
[2022-11-03 22:35] VITALS: BP 109/64; PULSE 62; RESP 16; O2SAT 95
--- NOTE | 2022-11-03 23:03 | W.ED.DIZZY ---
HPI - Dizziness General: Chief Complaint: Dizziness Stated Complaint: low bp Time Seen by Provider: 11/03/22 22:12 Source: patient Mode of arrival: ambulatory Limitations: no limitations History of Present Illness: HPI Narrative: 57-year-old male states that over the last 2 to 3 days he is just felt ill he states he has had some vomiting with general malaise today states he felt like he was going to pass out never actually passed out. He states he had multiple episodes of vomiting has had some borderline hypotension he denies any chest pain denies any abdominal pain no known sick contacts. Associated symptoms: Reports malaise; Denies headache(s), nausea or vomiting Review of Systems Const: Reports: fatigue and malaise Eyes: Denies: blurry vision or eye discomfort ENMT: Denies: throat pain or dental pain Card: Reports: pre-syncope Resp: Denies: dyspnea GI: Denies: abdominal pain, nausea, vomiting or diarrhea : Denies: dysuria Musc: Denies: neck pain or back pain Skin/Breast: Denies: rash Neuro: Denies: headache(s) Psych: Denies: depression Venancio/Lymph: Denies: easy bruising All/Imm: Denies: urticaria PFSH ED PFSH: Medical History Abdominal pain Bipolar 1 disorder, mixed, severe Cannabis dependence with current use medical marijuana card Chronic GERD COPD (chronic obstructive pulmonary disease) Diverticulosis Enrolled in chronic care management MCI (mild cognitive impairment) Medical marijuana use Migraine headache Nicotine dependence, cigarettes, uncomplicated BRIANDA (obstructive sleep apnea) Parkinson's disease dementia Parkinsons disease Polypharmacy Psychiatric care RLS (restless legs syndrome) Surgical History H/O shoulder surgery History of back surgery S/P hernia repair S/P insertion of spinal cord stimulator Family History Other CAD (coronary artery disease) Cancer Dementia Social History Smoking and tobacco status: current every day smoker cigarettes Packs smoked per day: 0.25 Years cigarettes smoked: 35 Quit status (tobacco): quit date established Second hand smoke exposure: No Smoking risk assessment/counseling performed?: No Alcohol intake: former Desire information about alcohol rehabilitation?: No Counseling given: No Counseling given: No Lives independently: Yes Household members: significant other Current occupational status: disabled History of recent travel: No Current gender identity: Male Physical Exam Const: COMMON NORMALS: no acute distress, patient oriented x3 and healthy appearing HENMT: COMMON NORMALS: normocephalic and atraumatic HEAD & SCALP: normocephalic and atraumatic Eye: COMMON NORMALS: Equal, round and reactive pupils present and EOMs intact bilaterally PUPIL: Yes Equal, round and reactive pupils present Neck/C-Spine: COMMON NORMALS: full ROM and supple Chest: COMMONS NORMALS: normal inspection of the chest and normal palpation of entire chest wall Resp: COMMON NORMALS: normal respiratory effort, No retractions, No use of accessory muscles and clear to auscultation bilaterally AUSCULTATION: clear to auscultation bilaterally Cardio: COMMON NORMALS: regular rate, regular rhythm and No murmurs present (Cardio) RATE: regular rate RHYTHM: regular rhythm GI: COMMON NORMALS: Normal to inspection, nondistended, normoactive bowel sounds present, Soft to palpation, non-tender and no masses PALPATION: Yes Soft to palpation Extremity: COMMON NORMALS: normal to inspection and full ROM Neuro: COMMON NORMALS: patient oriented x3, moves all extremities and no focal motor deficits Psych: COMMON NORMALS: mental status grossly normal, Normal thought process present and cooperative THOUGHT PROCESS: Normal thought process present Skin: COMMON NORMALS: no rashes or lesions noted and no wounds GENERAL SKIN EXAM: no rashes or lesions noted Course Vital Signs: Vital signs: Vital Signs Temperature 98.0 F 11/03/22 20:49 Pulse Rate 58 L 11/03/22 23:30 Respiratory Rate 12 11/03/22 23:30 Blood Pressure 106/55 11/03/22 23:30 Pulse Oximetry 95 11/03/22 23:30 Oxygen Delivery Me thod 11/03/22 20:49 MDM - Dizziness Medical Decision Making Patient presents with a near syncopal event along with some weakness he feels much improved after IV fluids he is well-appearing here he is stable for discharge he is to follow-up his PCP and return if worsening he understands and agrees to plan. Lab Data 11/03/22 21:10 11/03/22 21:10 Radiology Impressions Chest X-Ray 11/03/22 20:56 IMPRESSION: No new acute radiographic findings in the chest. Laboratory Results WBC 5.7 10^3/uL (4.0-10.0) 11/03/22 21:10 RBC 4.18 10^6/uL (4.1-5.3) 11/03/22 21:10 Hgb 13.0 g/dL (11.7-16.6) 11/03/22 21:10 Hct 38.8 % (42.0-52.0) L 11/03/22 21:10 MCV 92.8 fl (80-94) 11/03/22 21:10 MCH 31.1 pg (28.0-34.0) 11/03/22 21:10 MCHC 33.5 g/dL (30.0-36.0) 11/03/22 21:10 RDW 14.2 % (12.1-15.1) 11/03/22 21:10 Plt Count 159 10^3/cmm (130-400) 11/03/22 21:10 MPV 10.4 fL (7.4-10.4) 11/03/22 21:10 Neut % (Auto) 59.6 % 11/03/22 21:10 Lymph % (Auto) 29.7 % 11/03/22 21:10 [place] % (Auto) 8.6 % 11/03/22 21:10 Eos % (Auto) 1.6 % 11/03/22 21:10 Baso % (Auto) 0.3 % 11/03/22 21:10 Neut # (Auto) 3.42 10^3/uL (1.8-7.7) 11/03/22 21:10 Lymph # (Auto) 1.7 10^3/uL (0.8-4.8) 11/03/22 21:10 [place] # (Auto) 0.5 10^3/uL (0.2-0.9) 11/03/22 21:10 Eos # (Auto) 0.1 10^3/uL (0.0-0.8) 11/03/22 21:10 Baso # (Auto) 0.0 10^3/uL (0.0-0.1) 11/03/22 21:10 Nucleated RBC % (auto) 0 % 11/03/22 21:10 Nucleated RBCs # 0.0 /100WBC 11/03/22 21:10 Sodium 140 mmol/L (136-145) 11/03/22 21:10 Potassium 3.7 mmol/L (3.5-5.1) 11/03/22 21:10 Chloride 102 mmol/L (98-107) 11/03/22 21:10 Carbon Dioxide 26 mmol/L (22-29) 11/03/22 21:10 Anion Gap 15.7 (5-19) 11/03/22 21:10 BUN 15 mg/dL (6-20) 11/03/22 21:10 Creatinine 1.3 mg/dL (0.7-1.2) H 11/03/22 21:10 GFR Calculation 57.3 mL/min (90-130) L 11/03/22 21:10 Glucose 106 mg/dL (65-115) 11/03/22 21:10 Calculated Osmolality 291 mOsm/kg (285-295) 11/03/22 21:10 Calcium 9.7 mg/dL (8.5-10.5) 11/03/22 21:10 Total Bilirubin 0.4 mg/dL (0.15-1.2) 11/03/22 21:10 AST 13 U/L (0-40) 11/03/22 21:10 ALT < 5 U/L (0-41) 11/03/22 21:10 Alkaline Phosphatase 66 U/L (40-130) 11/03/22 21:10 Troponin T Baseline 7 ng/L (0-15) 11/03/22 21:10 Troponin T 120 Minute 8.67 ng/L (0-15) 11/03/22 23:27 Total Protein 6.3 g/dL (6.6-8.7) L 11/03/22 21:10 Albumin 4.4 g/dL (3.5-5.2) 11/03/22 21:10 Globulin 1.9 g/dL (1.3-4.6) 11/03/22 21:10 Discharge Plan Discharge Patient Disposition: Home Clinical Impression: Near syncope Condition: Stable Prescriptions: No Action levetiracetam [Keppra] 250 mg tablet 250 mg PO BID baclofen 20 mg tablet 20 mg PO TID memantine [Namenda] 10 mg tablet 10 mg PO BID Nuedexta 20-10 mg capsule 1 cap PO BID naloxone [Narcan] 4 mg/actuation spray,non-aerosol 4 mg intranasal Q2M PRN (Reason: opioid overdose) Qty: 4 2RF Rx Instructions: spray 1 dose in 1 nostril alternate nostrils w each dose until help arrives carbidopa-levodopa 25-100 mg tablet extended release 1 tab PO TID morphine 15 mg tablet extended release 15 mg PO TID Rx Instructions: Take one tablet by mouth three times daily morphine 15 mg tablet 15 mg PO TID PRN (Reason: pain) Rx Instructions: Take one tablet by mouth three times daily (DO NOT EXCEED THREE PER DAY) (DME) urinal See Rx Instructions .Route .MEDSUPPLY Qty: 1 0RF Rx Instructions: As directed nicotine [Nicoderm CQ] 14 mg/24 hr patch 24 hour 1 patch transdermal Q24H Qty: 28 2RF miscellaneous medical supply Kit See Rx Instructions miscellaneous .COMPLEX Qty: 1 0RF Rx Instructions: CPAP/auto with humidifier [id number] mask, tubing, chin strap, filter and other supplies needed Diagnosis G47.33 length of need 99 Lifetime albuterol sulfate [Ventolin HFA] 90 mcg/actuation HFA aerosol inhaler 2 puff INHALATION Q4H PRN (Reason: Shortness Of Breath) Qty: 8.5 3RF gabapentin 300 mg capsule See Rx Instructions .ROUTE .COMPLEX Qty: 90 2RF Dose Instruction: take 1 capsule BY MOUTH THREE TIMES DAILY Rx Instructions: take 1 capsule BY MOUTH THREE TIMES DAILY omeprazole 20 mg capsule,delayed release(DR/EC) See Rx Instructions .ROUTE .COMPLEX Qty: 60 2RF Dose Instruction: take 1 capsule BY MOUTH TWICE DAILY Rx Instructions: take 1 capsule BY MOUTH TWICE DAILY Anoro Ellipta 62.5-25 mcg/actuation blister with device 1 inh inhalation Q24H 30 Days Qty: 60 6RF allopurinol 300 mg tablet 300 mg PO DAILY Qty: 30 1RF paliperidone [Invega] 6 mg tablet extended release 24hr 6 mg PO .7 pm Qty: 30 1RF Rx Instructions: Take one tablet at 7 pm sumatriptan succinate 100 mg tablet See Rx Instructions .ROUTE .COMPLEX Qty: 12 4RF Dose Instruction: TAKE 1 TABLET BY MOUTH DIRECTED Rx Instructions: TAKE 1 TABLET BY MOUTH DIRECTED meloxicam 15 mg tablet See Rx Instructions .ROUTE .COMPLEX Qty: 30 1RF Dose Instruction: TAKE 1 TABLET BY MOUTH EVERY DAY WITH FOOD Rx Instructions: TAKE 1 TABLET BY MOUTH EVERY DAY WITH FOOD Discharge Orders: Discharge ED (Routine); Ordered 11/04/22 Ordered By: Joslyn Corado Referrals: Katerine Salcedo DO [Primary Care Provider] - 1-3 days Discharge Diet: Advance as tolerated Discharge Activity: Resume usual activity Patient Instructions: Near Syncope (ED) Coding Level of Care Code ED Adult Family Home Program Manager for Angela Fwd Exam Comprehensive
--- NOTE | 2022-11-03 23:22 | ECG_ITS ---
[facility] Test Date: 2022-11-03 Pat Name: Cabrera Sherman Department: Room: Gender: Male Hand Stripper: : 1965 Requested By: Joslyn Corado Order Number: [id number] Yokasta MD: Lavonne Orozco M.D. Measurements Intervals [place] Rate: 47 P: -19 [place]: 192 QRS: 50 QRSD: 89 T: 43 QT: 423 QTc: 375 Interpretive Statements SINUS BRADYCARDIA Compared to ECG 11/03/2022 20:46:32 Sinus rhythm no longer present ST (T wave) deviation no longer present Early repolarization no longer present Electronically Signed On 11-04-2022 18:21:37 WINE SPECIALIST by Lavonne Orozco M.D. [id number]
[2022-11-03 23:26] VITALS: BP 103/57; PULSE 50; RESP 12; O2SAT 95
[2022-11-03 23:30] VITALS: BP 106/55; PULSE 58; RESP 12; O2SAT 95
[2022-11-04 00:05] LABS: Troponin 5 2HR 8.67 ng/L (0-15)
[2022-11-04 00:22] VITALS: BP 103/66; PULSE 54; RESP 14; O2SAT 99
[2022-11-04 00:33] LABS: Troponin 5 2HR Delta 1.67 ABS# (0-10)
== END 2022-11-04 00:29 | disposition home or self-care (01) ==
PROVIDERS: Emergency Provider Emergency Medicine; PCP Family Medicine
DX: R55 Syncope and collapse (principal); F17.210 Nicotine dependence, cigarettes, uncomplicated; J44.9 Chronic obstructive pulmonary disease, unspecified; G20 Parkinson's disease; F02.80 Dementia in other diseases classified elsewhere, unspecified severity, without behavioral disturbance, psychotic disturbance, mood disturbance, and anxiety
CPT/HCPCS: 71045; 80053; 84484; 85025; 93005; 96361; 96374; 99284; J2405; J7030

== ENCOUNTER → 2022-11-25 09:45 | Outpatient (BNVA) | payer MEDICARE, MEDICAID, SELFPAY | PROVIDERS: PCP Family Medicine; Visit Provider Podiatrist Foot & Ankle Surgery | DX: M79.671 Pain in right foot (principal); R20.2 Paresthesia of skin | CPT/HCPCS: 99213 ==

== ENCOUNTER 2023-01-19 14:41 | Inpatient (IN) | payer MEDICARE, MEDICAID, SELFPAY ==
[2023-01-19 14:55] VITALS: BP 122/76; PULSE 110; RESP 16; TEMP 36.8; O2SAT 97
[2023-01-19 15:34] LABS: Basophils % 0.3 %; Eosinophils # 0.1 10^3/uL (0.0-0.8); Eosinophils % 1.5 %; Hematocrit 42.9 % (42.0-52.0); Hemoglobin 14.4 g/dL (11.7-16.6); Mean Corpuscular HGB Conc 33.6 g/dL (30.0-36.0); Mean Corpuscular Volume 92.3 fl (80-94); Mean Platelet Volume 9.9 fL (7.4-10.4); Monocytes # 0.4 10^3/uL (0.2-0.9); Monocytes % 7.1 %; Neutrophils # 4.52 10^3/uL (1.8-7.7); Neutrophils % 74.8 %; Nucleated Red Blood Cells % 0 %; Platelet Count 177 10^3/cmm (130-400); Red Blood Count 4.65 10^6/uL (4.1-5.3); White Blood Count 6.1 10^3/uL (4.0-10.0)
--- NOTE | 2023-01-19 15:41 | ED.C_ITS ---
HPI - Psych General: Chief Complaint: Psychiatric Symptoms Stated Complaint: psych eval Time Seen by Provider: 01/19/23 14:52 Source: patient Mode of arrival: ambulatory History of Present Illness: 57-year-old male presents to the emergency room complaining of being very stressed. He states he is thinking about harming himself because of the anxiety and stress. His significant other that is with him is very concerned because he was placed on paliperidone 6 mg extended release and he has Parkinson's she states she has a history of Parkinson's dementia. Evidently also has a history of bipolar. He was recently seen at both behavioral health and then at the crisis stabilization center where he was started on his medications although he did mention has not been taking them for significant length of time. He is awake alert and oriented. He is agreeable follow-up instructions has not been confrontational or disruptive in any way. MD complaint: suicidal ideation Onset (ago): month(s) Duration: constant History of same: Yes Relieving factors: medication Exacerbating factors: none Associated psychiatric symptoms: depression, suicidal ideation and racing thoughts Associated symptoms: Reports delusions, depression and suicidal ideation If self harm: admits thoughts of self harm Review of Systems Const: Denies: fever(s), chills, body aches, change in appetite, fatigue or malaise ENMT: Denies: throat pain, ear or mastoid pain, nasal discharge or nasal congestion Card: Denies: chest pain, edema, dyspnea on exertion or orthopnea Resp: Denies: dyspnea, productive cough or non-productive cough GI: Denies: abdominal pain, nausea, vomiting, hematemesis, coffee ground delroy sis, diarrhea, constipation, bloating, hematochezia or melena : Denies: flank pain, dysuria, urinary frequency or urinary urgency Skin/Breast: Denies: rash or pruritus Psych: Reports: depression and suicidal ideation PFS ED PFSH: Medical History Abdominal pain Bipolar 1 disorder, mixed, severe Cannabis dependence with current use medical marijuana card Chronic GERD COPD (chronic obstructive pulmonary disease) Diverticulosis Enrolled in chronic care management MCI (mild cognitive impairment) Medical marijuana use Migraine headache Nicotine dependence, cigarettes, uncomplicated BRIANDA (obstructive sleep apnea) Parkinson's disease dementia Parkinsons disease Polypharmacy Psychiatric care RLS (restless legs syndrome) Surgical History H/O shoulder surgery History of back surgery S/P hernia repair S/P insertion of spinal cord stimulator Family History Other CAD (coronary artery disease) Cancer Dementia Social History Smoking and tobacco status: current every day smoker cigarettes Packs smoked per day: 0.25 Years cigarettes smoked: 35 Quit status (tobacco): quit date established Second hand smoke exposure: No Smoking risk assessment/counseling performed?: No Alcohol intake: former Desire information about alcohol rehabilitation?: No Counseling given: No Counseling given: No Lives independently: Yes Household members: significant other Current occupational status: disabled Current gender identity: Male Physical Exam Const: GENERAL APPEARANCE: cooperative and comfortable ORIEN TATION/CONSCIOUSNESS: Yes awake, Yes oriented to person, Yes oriented to place and Yes oriented to time HENMT: COMMON NORMALS: normocephalic, atraumatic and hearing grossly normal bilaterally HEAD & SCALP: normocephalic and atraumatic Resp: COMMON NORMALS: normal respiratory effort, No retractions, No use of accessory muscles and clear to auscultation bilaterally AUSCULTATION: clear to auscultation bilaterally Cardio: COMMON NORMALS: regular rate, regular rhythm and No murmurs present (Cardio) RATE: regular rate RHYTHM: regular rhythm GI: COMMON NORMALS: Soft to palpation and No hepatosplenomegaly present AUSCULTATION: Yes normoactive bowel sounds PALPATION: Yes Soft to palpation, No Tenderness to palpation present (GI), No Guarding due to palpation present (GI) and Yes No hepatosplenomegaly present Extremity: COMMON NORMALS: normal to inspection, capillary refill normal, no clubbing, cyanosis or edema, no calf tenderness and no pedal edema Neuro: SENSORIUM/ORIENTATION: Yes oriented to person, Yes oriented to place and Yes oriented to time Psych: THOUGHT CONTENT: Yes delusions Skin: COMMON NORMALS: no rashes or lesions noted GENERAL SKIN EXAM: no ra shes or lesions noted Course Vital Signs: Vital signs: Vital Signs Temperature 97.5 F L 01/21/23 15:26 Pulse Rate 75 01/21/23 15:26 Respiratory Rate 18 01/21/23 15:26 Blood Pressure 117/75 01/21/23 15:26 Pulse Oximetry 93 01/21/23 15:26 Oxygen Delivery Me thod 01/21/23 14:00 MDM - Psych Medical Decision Making Acute on chronic psychosis with suicidal ideation. Patient been off his medicines for period of time. Discussed with Dr. Ron he recommends admission patient orders written discussed with the patient he is willing to voluntarily be admitted. Medical Records I reviewed the patient's medical records. Lab Data I reviewed the patient's lab results. 01/19/23 15:20 01/19/23 15:20 Laboratory Results WBC 6.1 10^3/uL (4.0-10.0) 01/19/23 15:20 RBC 4.65 10^6/uL (4.1-5.3) 01/19/23 15:20 Hgb 14.4 g/dL (11.7-16.6) 01/19/23 15:20 Hct 42.9 % (42.0-52.0) 01/19/23 15:20 MCV 92.3 fl (80-94) 01/19/23 15:20 MCH 31.0 pg (28.0-34.0) 01/19/23 15:20 MCHC 33.6 g/dL (30.0-36.0) 01/19/23 15:20 RDW 13.0 % (12.1-15.1) 01/19/23 15:20 Plt Count 177 10^3/cmm (130-400) 01/19/23 15:20 MPV 9.9 fL (7.4-10.4) 01/19/23 15:20 Neut % (Auto) 74.8 % 01/19/23 15:20 Lymph % (Auto) 16.0 % 01/19/23 15:20 [place] % (Auto) 7.1 % 01/19/23 15:20 Eos % (Auto) 1.5 % 01/19/23 15:20 Baso % (Auto) 0.3 % 01/19/23 15:20 Neut # (Auto) 4.52 10^3/uL (1.8-7.7) 01/19/23 15:20 Lymph # (Auto) 1.0 10^3/uL (0.8-4.8) 01/19/23 15:20 [place] # (Auto) 0.4 10^3/uL (0.2-0.9) 01/19/23 15:20 Eos # (Auto) 0.1 10^3/uL (0.0-0.8) 01/19/23 15:20 Baso # (Auto) 0.0 10^3/uL (0.0-0.1) 01/19/23 15:20 Nucleated RBC % (auto) 0 % 01/19/23 15:20 Nucleated RBCs # 0.0 /100WBC 01/19/23 15:20 Sodium 142 mmol/L (136-145) 01/19/23 15:20 Potassium 4.1 mmol/L (3.5-5.1) 01/19/23 15:20 Chloride 106 mmol/L (98-107) 01/19/23 15:20 Carbon Dioxide 26 mmol/L (22-29) 01/19/23 15:20 Anion Gap 14.1 (5-19) 01/19/23 15:20 BUN 15 mg/dL (6-20) 01/19/23 15:20 Creatinine 0.9 mg/dL (0.7-1.2) 01/19/23 15:20 GFR Calculation 87.6 mL/min (90-130) L 01/19/23 15:20 Glucose 126 mg/dL (65-115) H 01/19/23 15:20 Calculated Osmolality 296 mOsm/kg (285-295) H 01/19/23 15:20 Calcium 9.7 mg/dL (8.5-10.5) 01/19/23 15:20 Total Bilirubin 0.2 mg/dL (0.15-1.2) 01/19/23 15:20 AST 18 U/L (0-40) 01/19/23 15:20 ALT < 5 U/L (0-41) 01/19/23 15:20 Alkaline Phosphatase 91 U/L (40-130) 01/19/23 15:20 Total Protein 6.6 g/dL (6.6-8.7) 01/19/23 15:20 Albumin 4.1 g/dL (3.5-5.2) 01/19/23 15:20 Globulin 2.5 g/dL (1.3-4.6) 01/19/23 15:20 Urine Color Yellow (Yellow) 01/19/23 16:02 Urine Appearance Clear (CLEAR) 01/19/23 16:02 Urine pH 6 (5-7) 01/19/23 16:02 Ur Specific Elizabeth 1.025 (1.005-1.030) 01/19/23 16:02 Urine Protein Neg (Negative) 01/19/23 16:02 Urine Glucose (UA) Norm (Normal) 01/19/23 16:02 Urine Ketones 1+ (Negative) H 01/19/23 16:02 Urine Blood Neg (Negative) 01/19/23 16:02 Urine Nitrate Negative (Negative) 01/19/23 16:02 Urine Bilirubin Neg (Negative) 01/19/23 16:02 Urine Urobilinogen Norm mg/dL (Negative) 01/19/23 16:02 Ur Leukocyte Esterase Negative (Negative) 01/19/23 16:02 Salicylates 0.7 mg/dL (3-10) L 01/19/23 15:20 Urine Opiates Screen Positive ng/mL (Negative) H 01/19/23 16:02 Acetaminophen < 5.0 ug/mL (10-30) L 01/19/23 15:20 Ur Barbiturates Screen Negative ng/mL (Negative) 01/19/23 16:02 Ur Phencyclidine Scrn Negative ng/mL (Negative) 01/19/23 16:02 Ur Amphetamines Screen Negative ng/mL (Negative) 01/19/23 16:02 U Benzodiazepines Scrn Positive ng/mL (Negative) H 01/19/23 16:02 Urine Cocaine Screen Negative ng/mL (Negative) 01/19/23 16:02 U Marijuana (THC) Screen Positive ng/mL (Negative) H 01/19/23 16:02 Discharge Plan Discharge Patient Disposition: Admitted As Inpatient Admit Provider: Escobar Ron Clinical Impression: Suicidal ideation, Acute psychosis, Bipolar disorder, Depression Condition: Stable Discharge Diet: Regular Discharge Activity: Resume usual activity Coding Level of Care Code ED [employer] Technician for Angela Fernandez
[2023-01-19 15:53] LABS: Alanine Aminotransferase < 5 U/L (0-41); Albumin Level 4.1 g/dL (3.5-5.2); Alkaline Phosphatase 91 U/L (40-130); Anion Gap 14.1 (5-19); Aspartate Amino Transferase 18 U/L (0-40); Blood Urea Nitrogen 15 mg/dL (6-20); Calcium 9.7 mg/dL (8.5-10.5); Carbon Dioxide 26 mmol/L (22-29); Chloride 106 mmol/L (98-107); Globulin 2.5 g/dL (1.3-4.6); Glomerular Filtration Rate 87.6 mL/min (90-130); Glucose 126 mg/dL (65-115); Osmolality Calculated 296 mOsm/kg (285-295); Potassium 4.1 mmol/L (3.5-5.1); Salicylate 0.7 mg/dL (3-10); Sodium 142 mmol/L (136-145); Total Bilirubin 0.2 mg/dL (0.15-1.2); Total Protein 6.6 g/dL (6.6-8.7)
[2023-01-19 15:57] LABS: Acetaminophen < 5.0 ug/mL (10-30)
[2023-01-19 16:11] LABS: Add Urine Microscopic? NO; Charge for UA Resulting for Rev
[2023-01-19 16:22] LABS: Urine Appearance Clear (CLEAR); Urine Color Yellow (Yellow)
[2023-01-19 16:23] LABS: Bilirubin Urine Neg (Negative); Blood Urine Neg (Negative); Glucose Urine UA Norm (Normal); Ketones Urine 1+ (Negative); Leukocyte Esterase Urine Negative (Negative); Nitrate Urine Negative (Negative); Protein Urine Neg (Negative); Specific Gravity, Urine 1.025 (1.005-1.030); Urobilinogen Urine Norm (Negative); pH Urine 6 (5-7)
[2023-01-19 16:33] LABS: Amphetamines Screen Urine Negative (Negative); Barbiturates Screen Urine Negative (Negative); Benzodiazepines Screen Urine Positive (Negative); Cocaine Screen Urine Negative (Negative); Opiate Screen Urine Positive (Negative); PCP Screen Urine Negative (Negative); THC Screen Urine Positive (Negative)
[2023-01-19 17:19] VITALS: BP 104/76; PULSE 83; RESP 17; TEMP 36.6; O2SAT 94
[2023-01-19] MEDS: nicotine 4 mg lozenge MUCOUS MEM ×2 (18:02→21:28)
[2023-01-19] MEDS: hyDROXYzine 25 mg Capsule 50 MG PO ×2 (18:38→21:28)
--- NOTE | 2023-01-19 18:47 | PC.NURSE ---
Patient states he came to the hospital today because he was feeling suicidal and was tired of not getting any help. He states he was seeing Samantha Austin at [facility] for 8 years, but was told they couldn't see him anymore because he used marijuana, despite the fact that he has a medical marijuana card. Patient says he was then referred to Dr. Silveira, but that he only got to do a video call with him for approximately 10 minutes and that the anxiety medication and sleeping medication he was prescribed was not working. He denies any AH/VH and HI. He heavily endorses being depressed and states he couldn't kill himself because he is close with his granddaughter and couldn't leave her thinking about her grandpa killing himself her whole life. Patient very tearful when speaking about his granddaughter. He says he is very stressed out and overwhelmed with not feeling himself. He denies any other drug use. He does state the doctor had prescribed him seroquel and that he doesn't like the way it makes him feel like a zombie. Patient states he hasn't been sleeping well. Patient cooperative throughout assessment.
[2023-01-19 20:13] VITALS: BP 105/72; PULSE 76; RESP 18; TEMP 36.5; O2SAT 96
[2023-01-19] MEDS: paliperidone ER 6 mg Tablet PO (21:19)
[2023-01-19] MEDS: baclofen 10 mg Tablet 20 MG PO (21:19)
[2023-01-19] MEDS: levETIRAcetam 500 mg Tablet 250 MG PO (21:20)
[2023-01-19] MEDS: gabapentin 300 mg Capsule PO (21:20)
[2023-01-19] MEDS: carbidopa-levodopa 25-100mg Tablet 1 EACH PO (21:20)
[2023-01-20 06:00] VITALS: BP 103/72; PULSE 84; RESP 17; TEMP 36.6; O2SAT 95
[2023-01-20] MEDS: nicotine 2 mg Gum BUCCAL (06:20)
[2023-01-20] MEDS: baclofen 10 mg Tablet 20 MG PO ×3 (08:46→21:13)
[2023-01-20] MEDS: nicotine 4 mg lozenge MUCOUS MEM (08:46)
[2023-01-20] MEDS: levETIRAcetam 500 mg Tablet 250 MG PO ×2 (08:46→18:08)
[2023-01-20] MEDS: gabapentin 300 mg Capsule PO ×3 (08:46→21:14)
[2023-01-20] MEDS: pantoprazole DR 40 mg Tablet PO (08:46)
[2023-01-20] MEDS: carbidopa-levodopa 25-100mg Tablet 1 EACH PO ×3 (08:47→21:14)
[2023-01-20] MEDS: meloxicam 7.5 mg tablet 15 MG PO (08:47)
[2023-01-20 09:45] VITALS: RESP 16; O2SAT 96
[2023-01-20] MEDS: morphine IR 15 mg Tablet PO ×2 (09:45→18:11)
[2023-01-20] MEDS: nicotine 21 mg Patch 1 PATCH TRANSDERMA (09:45)
[2023-01-20] MEDS: allopurinol 300 mg Tablet PO (09:45)
[2023-01-20] MEDS: memantine 5 mg tablet 10 MG PO ×2 (09:46→18:09)
--- NOTE | 2023-01-20 10:22 | PC.NURSE ---
IN ROOM THIS AM,PT WAS VISIBLY UPSET AND ANGRY MEDICATIONS WERE NOT STARTED. PT YELLING I'M GETTING DENIED MY MEDICATIONS. INFORMED PT IF HE WOULD CALM DOWN WE COULD TALK ABOUT WHAT WAS GOING ON AND WE COULD GET HIS MEDS STARTED IF HE HAD ACTIVE SCRIPTS. PT DID CALM. ACCREDITED LEGAL SECRETARY REVIEWED MEDS AND STARTED HIS PAIN MEDICATIONS ORDERED AND MORPHINE 15 MG WAS GIVEN FOR PAIN 8/10 GENERALIZED. PT STATES HE ALSO HAS AN APT WITH PAIN DR THIS AM AND HIS MEDS ARE GOING TO RUN OUT. INFORMED PT I WOULD GET THE NUMBER AND HE COULD CALL. PT DENIES SI/HI AND AVH AT THIS TIME. PT STATES I'M ONLY HERE TO GET MY MEDS FIGURED OUT. LAST BM 01/19/23
[2023-01-20] MEDS: morphine ER (12 HR) 15 mg Tablet PO ×2 (10:46→21:14)
[2023-01-20] MEDS: hyDROXYzine 25 mg Capsule 50 MG PO ×2 (10:47→18:11)
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
[2023-01-20] MEDS: fixodent 39 gm Tube 1 APPLIC DENTAL (12:07)
[2023-01-20 14:00] VITALS: BP 126/84; PULSE 82; RESP 18; TEMP 36.6; O2SAT 94
--- NOTE | 2023-01-20 16:51 | PC.NURSE ---
PT WAS GIVEN VISTARIL 50 MG THIS AM REQUESTED FOR ANXIETY. PT VOICES RELIEF OF ANXIETY.
[2023-01-20 18:11] VITALS: RESP 169; O2SAT 96
--- NOTE | 2023-01-20 18:14 | PC.NURSE ---
VISTARIL 50 MG GIVEN FOR COMPLAINTS OF ANXIETY. GIVEN ORDERED SEE MAR FOR DETAILS AND TIMES
[2023-01-20 21:14] VITALS: BP 126/70; PULSE 74; RESP 17; TEMP 37; O2SAT 93
[2023-01-20] MEDS: paliperidone ER 6 mg Tablet PO (21:15)
[2023-01-20] MEDS: trazodone 50 mg Tablet PO (21:15)
[2023-01-21 06:00] VITALS: BP 93/63; PULSE 103; RESP 17
[2023-01-21 06:17] VITALS: RESP 18; O2SAT 95
[2023-01-21] MEDS: morphine IR 15 mg Tablet PO ×2 (06:17→12:57)
[2023-01-21] MEDS: pantoprazole DR 40 mg Tablet PO (09:51)
[2023-01-21] MEDS: carbidopa-levodopa 25-100mg Tablet 1 EACH PO ×2 (09:51→14:43)
[2023-01-21] MEDS: morphine ER (12 HR) 15 mg Tablet PO ×2 (09:51→14:43)
[2023-01-21] MEDS: levETIRAcetam 500 mg Tablet 250 MG PO (09:51)
[2023-01-21] MEDS: gabapentin 300 mg Capsule PO ×2 (09:52→14:43)
[2023-01-21] MEDS: meloxicam 7.5 mg tablet 15 MG PO (09:52)
[2023-01-21] MEDS: baclofen 10 mg Tablet 20 MG PO ×2 (09:52→14:43)
[2023-01-21] MEDS: memantine 5 mg tablet 10 MG PO (09:56)
[2023-01-21] MEDS: allopurinol 300 mg Tablet PO (09:58)
[2023-01-21] MEDS: nicotine 4 mg lozenge MUCOUS MEM (11:18)
[2023-01-21 12:57] VITALS: RESP 16; O2SAT 96
[2023-01-21] MEDS: hyDROXYzine 25 mg Capsule 50 MG PO (12:57)
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
[2023-01-21 14:00] VITALS: BP 117/75; PULSE 75; RESP 18; TEMP 36.4; O2SAT 93
[2023-01-21 15:26] VITALS: BP 117/75; PULSE 75; RESP 18; TEMP 36.4; O2SAT 93
== END 2023-01-21 16:05 | disposition home or self-care (01) | DRG 57 ==
LOC: ER 15:45 → NP 19:34
PROVIDERS: Admitting Provider Psychiatry & Neurology Psychiatry; Emergency Provider Family Medicine; PCP Family Medicine; Visit Provider Psychiatry & Neurology Psychiatry
DX: G20 Parkinson's disease (principal); F02.84 Dementia in other diseases classified elsewhere, unspecified severity, with anxiety; R45.851 Suicidal ideations; F43.10 Post-traumatic stress disorder, unspecified; F31.9 Bipolar disorder, unspecified; R35.1 Nocturia; R20.2 Paresthesia of skin; T50.916A Underdosing of multiple unspecified drugs, medicaments and biological substances, initial encounter; T43.506A Underdosing of unspecified antipsychotics and neuroleptics, initial encounter; K21.9 Gastro-esophageal reflux disease without esophagitis; F17.210 Nicotine dependence, cigarettes, uncomplicated; Z63.0 Problems in relationship with spouse or partner; Z79.899 Other long term (current) drug therapy; Z81.8 Family history of other mental and behavioral disorders
CPT/HCPCS: 36415; 80053; 80306; 80307; 81003; 85025; 97150; 97165; 99238; 99285

== ENCOUNTER → 2023-03-24 11:06 | Outpatient (BNVA) | payer MEDICARE, MEDICAID, OTHER, SELFPAY | PROVIDERS: PCP Family Medicine; Visit Provider Podiatrist Foot & Ankle Surgery | DX: R20.2 Paresthesia of skin (principal) | CPT/HCPCS: 99213 ==

== ENCOUNTER → 2023-03-25 11:15 | Outpatient (BNVA) | payer MEDICARE, MEDICAID, SELFPAY | PROVIDERS: PCP Family Medicine; Visit Provider Internal Medicine Cardiovascular Disease | DX: I95.9 Hypotension, unspecified (principal); R55 Syncope and collapse; R42 Dizziness and giddiness; R07.9 Chest pain, unspecified; R06.09 Other forms of dyspnea; J44.9 Chronic obstructive pulmonary disease, unspecified; G47.33 Obstructive sleep apnea (adult) (pediatric); G20 Parkinson's disease; F02.818 Dementia in other diseases classified elsewhere, unspecified severity, with other behavioral disturbance; F43.10 Post-traumatic stress disorder, unspecified; F17.210 Nicotine dependence, cigarettes, uncomplicated; Z79.899 Other long term (current) drug therapy; Z79.891 Long term (current) use of opiate analgesic; F31.9 Bipolar disorder, unspecified | CPT/HCPCS: 93005; 99204 ==

== ENCOUNTER → 2023-03-31 13:03 | Outpatient (BNVA) | payer MEDICARE, MEDICAID, SELFPAY | PROVIDERS: PCP Family Medicine; Visit Provider Internal Medicine Cardiovascular Disease | DX: R07.9 Chest pain, unspecified (principal); I49.1 Atrial premature depolarization; I49.3 Ventricular premature depolarization; R00.0 Tachycardia, unspecified; I44.0 Atrioventricular block, first degree; I49.8 Other specified cardiac arrhythmias | CPT/HCPCS: 93246 ==

== ENCOUNTER 2023-05-24 12:55 | Outpatient (CLI) | payer MEDICARE, MEDICAID, SELFPAY ==
--- NOTE | 2023-05-24 13:30 | USCV_ITS ---
Lane Cabrera Age: 57 Gender: M : 1965 Exam Date: 05/24/2023 13:20 Ordering Phys: Lavonne Orozco MD ([email or web address]) Technologist: [place] [facility] [place]ication: sob,near syncope BP: 125 / 80 HR: 61 Rhythm: Sinus Technical Quality: Adequate MEASUREMENTS (Male / Female) Normal Values 2D ECHO LV Diastolic Diameter PLAX 4.4 cm 4.2 - 5.9 / 3.9 - 5.3 cm LV Systolic Diameter PLAX 2.3 cm LV Chamber Size 4.7 cm IVS Diastolic Thickness 0.9 cm 0.6 - 1.0 / 0.6 - 0.9 cm IVS Systolic Thickness 1.7 cm LVPW Diastolic Thickness 1.1 cm 0.6 - 1.0 / 0.6 - 0.9 cm LVPW Systolic Thickness 2.0 cm RV Chamber Size 3.7 cm LVOT Diameter 2.1 cm LV Ejection Fraction 2D Teich 79.6 % LV Ejection Fraction MOD 2C 70.3 % LV Ejection Fraction 2C AL 71.4 % LA Diameter 3.2 cm LA Width 3.1 cm LA Height 4.2 cm RA Width 4.0 cm RA Height 4.9 cm Aorta at Sinotubular Diameter 2.9 cm IVC Diameter 2.0 cm M-MODE Aortic Annulus Diameter 3.2 cm LA Ao Ratio MM 1.0 MV E Point Septal Separation 0.5 cm DOPPLER AV Peak Velocity 139.0 cm/s LVOT Peak Velocity 122.0 cm/s AV Area Cont Eq vti 3.9 cm squared AV Area Cont Eq pk 2.9 cm squared MV Peak Velocity 85.0 cm/s MV Area PHT 3.5 cm squared Mitral E to A Ratio 1.0 MV E' Velocity 37.0 cm/s Mitral E to MV E' Ratio 8.1 Mitral E to LV E' Lateral Ratio 6.8 Mitral E to LV E' Septal Ratio 9.9 TR Peak Velocity 117.0 cm/s TR Peak Gradient 5.5 mmHg TV Peak E Velocity 63.0 cm/s Right Atrial Pressure 3.0 mmHg Pulmonary Artery Systolic Pressu 8.5 mmHg RV Acceleration Time 0.2 s FINDINGS Left Ventricle Normal left ventricular size and systolic function, EF 64 %. No regional wall motion abnormalities. Right Ventricle The right ventricle is normal in size and function. Right Atrium The right atrium is normal in size. Left Atrium The left atrium is normal in size. Mitral Valve Trace mitral valve regurgitation. Aortic Valve No gross abnormalities noted. Tricuspid Valve Trace tricuspid valve regurgitation. Pulmonic Valve No gross abnormalities noted Pericardium Normal pericardium without effusion. Aorta Normal ascending aorta dimension. IVC The inferior vena cava appears normal. CONCLUSIONS Normal left ventricular size and systolic function, EF 64 %. No regional wall motion abnormalities. Normal cardiac chamber sizes. Trace of mitral and tricuspid regurgitation There is no pericardial effusion. There are no intracardiac masses. Compared to the study from 05/30/2015, there may not be significant change Dr Lavonne Orozco MD FACC (Electronically Signed) Final Date: 27 May 2023 08:35 S
== END 2023-05-24 12:56 | disposition home or self-care (01) ==
LOC: RAD 12:57
PROVIDERS: PCP Family Medicine; Visit Provider Internal Medicine Cardiovascular Disease
DX: R06.02 Shortness of breath (principal); R55 Syncope and collapse; I34.0 Nonrheumatic mitral (valve) insufficiency; I07.1 Rheumatic tricuspid insufficiency
CPT/HCPCS: 93306

== ENCOUNTER → 2023-06-02 08:37 | Outpatient (BNVA) | payer MEDICARE, MEDICAID, SELFPAY | PROVIDERS: PCP Family Medicine; Visit Provider Internal Medicine Pulmonary Disease | DX: J44.1 Chronic obstructive pulmonary disease with (acute) exacerbation (principal); F17.219 Nicotine dependence, cigarettes, with unspecified nicotine-induced disorders; G47.33 Obstructive sleep apnea (adult) (pediatric); F12.90 Cannabis use, unspecified, uncomplicated | CPT/HCPCS: 99214 ==

== ENCOUNTER 2023-06-11 14:14 | Outpatient (CLI) | payer MEDICARE, MEDICAID, SELFPAY ==
--- NOTE | 2023-06-11 14:30 | CT_ITS ---
WS: [id number] LDCT LUNG CANCER SCREENING TECHNIQUE: Noncontrast CT of the chest with coronal and sagittal reformatted images. CLINICAL INFORMATION: Cancer screen COMPARISON: CT chest 2019 DLP: 42.1 DIvol: 1.[address] scans at [facility] use at least one of these dose optimization techniques: automat ed exposure control; mA and/or kV adjustment per patient size (includes targeted exams where dose is matched to clinical indication); or iterative reconstruction. FINDINGS: Moderate chronic emphysematous changes. No acute pulmonary infiltrates. Noncalcified nodule along the LEFT fissure measuring 3 mm. No mediastinal or hilar lymphadenopathy. Adrenal glands are normal. Normal GE junction. Normal calibe r thoracic aorta. Subsegmental atelectasis RIGHT upper lobe anteriorly.Spinal stimulator. CT/CT lung screening [id number] IMPRESSION: LUNG-RADS: 2-Benign Appearance or Behavior FOLLOW UP: 12 Month: Continue annual screening with LDCT
== END 2023-06-11 14:15 | disposition home or self-care (01) ==
PROVIDERS: PCP Family Medicine; Visit Provider Internal Medicine Pulmonary Disease
DX: Z12.2 Encounter for screening for malignant neoplasm of respiratory organs (principal); F17.210 Nicotine dependence, cigarettes, uncomplicated
CPT/HCPCS: 71271

== ENCOUNTER 2023-06-29 11:04 | Outpatient (CLI) | payer MEDICARE, MEDICAID, SELFPAY ==
[2023-06-29 11:27] VITALS: PULSE 106; RESP 20; O2SAT 98
[2023-06-29] MEDS: albuterol 2.5 mg/3 mL Neb INHALATION (11:27)
[2023-06-29 11:32] VITALS: PULSE 103
== END 2023-06-29 11:05 | disposition home or self-care (01) ==
LOC: RT 11:05
PROVIDERS: PCP Family Medicine; Visit Provider Internal Medicine Pulmonary Disease
DX: R06.02 Shortness of breath (principal)
CPT/HCPCS: 94060; 94618; 94726; 94729

== ENCOUNTER → 2023-07-15 10:21 | Outpatient (BNVA) | payer MEDICARE, MEDICAID, SELFPAY | PROVIDERS: PCP Family Medicine; Visit Provider Internal Medicine Pulmonary Disease | DX: J30.2 Other seasonal allergic rhinitis (principal); R06.02 Shortness of breath; J44.1 Chronic obstructive pulmonary disease with (acute) exacerbation; G47.33 Obstructive sleep apnea (adult) (pediatric); F17.210 Nicotine dependence, cigarettes, uncomplicated | CPT/HCPCS: 36415; 82785; 85025; 86003; 99214 ==

== ENCOUNTER → 2023-08-03 10:12 | Outpatient (BNVA) | payer MEDICARE, MEDICAID, SELFPAY | PROVIDERS: PCP Family Medicine; Visit Provider Internal Medicine Cardiovascular Disease | DX: R55 Syncope and collapse (principal); G47.33 Obstructive sleep apnea (adult) (pediatric); I95.9 Hypotension, unspecified; F41.1 Generalized anxiety disorder; F43.10 Post-traumatic stress disorder, unspecified; F17.210 Nicotine dependence, cigarettes, uncomplicated | CPT/HCPCS: 99214 ==

== ENCOUNTER → 2023-09-29 11:10 | Outpatient (BNVA) | payer MEDICARE, MEDICAID, SELFPAY | PROVIDERS: PCP Family Medicine; Visit Provider Podiatrist Foot & Ankle Surgery | DX: R20.2 Paresthesia of skin; M79.672 Pain in left foot; M79.671 Pain in right foot | CPT/HCPCS: 99213 ==

== ENCOUNTER → 2023-09-30 14:20 | Outpatient (BNVA) | payer MEDICARE, MEDICAID, SELFPAY | PROVIDERS: PCP Family Medicine; Visit Provider Family Medicine | DX: Z13.6 Encounter for screening for cardiovascular disorders (principal); Z79.899 Other long term (current) drug therapy; Z12.5 Encounter for screening for malignant neoplasm of prostate; Z11.59 Encounter for screening for other viral diseases | CPT/HCPCS: 80061; 83036; 86803; G0103 ==

== ENCOUNTER → 2023-10-12 10:33 | Outpatient (BNVA) | payer MEDICARE, MEDICAID, SELFPAY | PROVIDERS: PCP Family Medicine; Referring Provider Family Medicine; Visit Provider Surgery | DX: Z12.11 Encounter for screening for malignant neoplasm of colon (principal) | CPT/HCPCS: 99024; 99203 ==

== ENCOUNTER → 2023-10-25 09:23 | Outpatient (BNVA) | payer MEDICARE, MEDICAID, SELFPAY | PROVIDERS: PCP Family Medicine; Visit Provider Internal Medicine Pulmonary Disease | DX: J44.1 Chronic obstructive pulmonary disease with (acute) exacerbation (principal); F17.219 Nicotine dependence, cigarettes, with unspecified nicotine-induced disorders; G47.33 Obstructive sleep apnea (adult) (pediatric); F12.90 Cannabis use, unspecified, uncomplicated; Z91.198 Patient's noncompliance with other medical treatment and regimen for other reason | CPT/HCPCS: 99214 ==

== ENCOUNTER → 2024-01-06 14:09 | Outpatient (BNVA) | payer MEDICARE, MEDICAID, SELFPAY | PROVIDERS: PCP Family Medicine; Visit Provider Internal Medicine Pulmonary Disease | DX: J44.1 Chronic obstructive pulmonary disease with (acute) exacerbation (principal); G47.33 Obstructive sleep apnea (adult) (pediatric); Z87.891 Personal history of nicotine dependence | CPT/HCPCS: 99214 ==

== ENCOUNTER 2024-01-20 10:39 | Day surgery (SDC) | payer MEDICARE, MEDICAID, SELFPAY ==
[2024-01-20 10:51] VITALS: BP 91/73; PULSE 111; RESP 16; TEMP 36.8; O2SAT 95; BMI 25.0
[2024-01-20] MEDS: sodium chloride 0.9% 1,000 ML 30 ML IV (11:03)
--- NOTE | 2024-01-20 11:40 | W.PM.OPSFHP ---
Same Day Surgery H&P Indication for Procedure/HPI DATE OF PROCEDURE: January 20, 2024 CHIEF COMPLAINT/INDICATIONFOR SURGICAL PROCEDURE: need for screening colonoscopy PREOP DIAGNOSIS: need for screening colonoscopy PLANNED PROCEDURE: Operation Date: 01/20/24 11:40 Proposed Procedures p [id number] colon G0121 screen colon A risk Z12.11(Not Applicable) - Osorio Colunga MD Medications/Allergies* Home Medications Medication Instructions Recorded Confirmed Type levetiracetam 250 mg tablet 250 mg PO BID 12/14/19 01/20/24 History (Keppra) memantine 10 mg tablet (Namenda) 10 mg PO BID 04/07/22 01/20/24 History carbidopa ER 25 mg-levodopa 100 mg 1 tab PO TID 08/24/22 01/20/24 History tablet,extended release morphine 15 mg immediate release 15 mg PO TID PRN pain 08/24/22 01/19/24 History tablet allopurinol 300 mg tablet 300 mg PO DAILY 01/19/24 01/20/24 History gabapentin 400 mg capsule 400 mg PO TID 01/19/24 01/20/24 History meloxicam 15 mg tablet 15 mg PO DAILY 01/19/24 01/20/24 History omeprazole 20 mg capsule,delayed 20 mg PO BID 01/19/24 01/20/24 History release sumatriptan succinate 100 mg tablet 100 mg PO DAILY PRN headaches 01/19/24 01/19/24 History umeclidinium 62.5 mcg-vilanterol 1 inh inhalation DAILY 01/19/24 01/20/24 History 25 mcg/actuation powdr for inhalation (Anoro Ellipta) Allergies/Adverse Reactions Allergy/AdvReac Type Severity Reaction Status Date / Time codeine Allergy Mild Nausea/Vomi Verified 01/19/24 10:10 ting Current Medications: Generic Name Dose Route Start Last Admin Trade Name Freq PRN Reason Stop Dose Admin Sodium Chloride 1,000 mls @ 30 mls/hr 01/20/24 10:45 01/20/24 11:03 Sodium Chloride 0.9% IV 30 mls/hr .Q24H SUKH Administration Pertinent History/Comorbid Conditions* Medical History (Updated 09/30/23 @ 14:17 by Katerine Salcedo DO) Parkinsons disease Polypharmacy Medical marijuana use Cannabis dependence with current use medical marijuana card Psychiatric care Diverticulosis Abdominal pain Nicotine dependence, cigarettes, uncomplicated Bipolar 1 disorder, mixed, severe Enrolled in chronic care management Parkinson's disease dementia MCI (mild cognitive impairment) Chronic GERD BRIANDA (obstructive sleep apnea) COPD (chronic obstructive pulmonary disease) RLS (restless legs syndrome) Migraine headache Surgical History (Updated 12/18/19 @ 14:09 by Katerine Salcedo DO) History of back surgery S/P hernia repair S/P insertion of spinal cord stimulator H/O shoulder surgery Family History (Updated 12/14/19 @ 13:32 by Lucy Rubio LPN) CAD (coronary artery disease) Dementia Cancer Social History Smoking and tobacco/nicotine status: former use of tobacco/nicotine Quit status (tobacco/nicotine): has quit using Year quit tobacco: 08/2023 Former quit date comment: 2ppd X 42year Second hand smoke exposure: No Alcohol intake: former Substance/Drug Use: never Lives independently: Yes Household members: significant other Current occupational status: disabled Do you think of yourself as: Straight/Heterosexual Current gender identity: Male Pertinent Exam Findings alert, oriented x 3, clear to auscultation bilaterally and operative site marked Recommendations Surgery/Procedure today Coding Level of Care Code Acute Code for Chg Fwd
--- NOTE | 2024-01-20 11:43 | ANES.PREANE2 ---
Pre-Anesthetic Assessment Height/Weight: Height 1.91 m Weight 90.718 kg Temp Pulse Resp BP Pulse Ox O2 Del Method 98.2 F 111 H 16 91/73 95 Room Air 01/20/24 10:51 01/20/24 10:51 01/20/24 10:51 01/20/24 10:51 01/20/24 10:51 01/20/24 10:51 Preop Diagnosis: need for screening colonoscopy Operation Date: 01/20/24 11:40 Proposed Procedures p 38468 colon G0121 screen colon A risk Z12.11(Not Applicable) - Osorio Colunga MD Familial anesthetic complications: None Was Beta Medhat taken within 24 hours: N/A Was Clonidine taken within 24 hours: N/A Last intake: Intake Last Liquid Date 01/19/24 Last Liquid Time 20:30 Last Solid Date 01/18/24 Last Solid Time 18:00 Social No tobacco (Quit August, medical marijuana daily) Exam alert, oriented x 3, clear to auscultation bilaterally and regular rate & rhythm Airway Submandibular: within normal limits Cervical ROM: within normal limits Mallampati: Class II Dentition: full History/ROS No significant history except as noted and No significant complaints Pulmonary Asthma, Chronic Obstructive Pulmonary Disease, Cough, Exertional Dyspnea and Sleep Apnea CV/HEM None reported CONCLUSIONS Normal left ventricular size and systolic function, EF 64 %. No regional wall motion abnormalities. Normal cardiac chamber sizes. Trace of mitral and tricuspid regurgitation There is no pericardial effusion. There are no intracardiac masses. Compared to the study from 05/30/2015, there may not be significant change None reported Hepatic None reported GI None reported Metabolic None reported Musc/skel Lower Back Pain and Osteoarthritis/DJD Neuropsych Anxiety, Depression and Headache Bipolar PTSD Parkinsons Anesthetic Plan ASA status: 3 Anesthesia: Anesthesia Evaluation, General and MAC Risk of > 500 ml blood loss (7ml/kg in children): No Medications/Allergies Home Medications Medication Instructions Recorded Confirmed Last Taken Type levetiracetam 250 mg tablet 250 mg PO BID 12/14/19 01/20/24 01/20/24 History (Mary) miscellaneous medical supply See Rx Instructions miscellaneous 03/04/22 01/19/24 01/20/23 Rx .COMPLEX #1 ea memantine 10 mg tablet (Namenda) 10 mg PO BID 04/07/22 01/20/24 01/20/24 History carbidopa ER 25 mg-levodopa 100 mg 1 tab PO TID 08/24/22 01/20/24 01/20/24 History tablet,extended release morphine 15 mg immediate release 15 mg PO TID PRN pain 08/24/22 01/19/24 01/19/24 History tablet naloxone 4 mg/actuation nasal 4 mg intranasal Q2M PRN opioid 08/24/22 01/20/24 01/20/24 Rx spray (Narcan) overdose #4 ea albuterol sulfate 90 mcg/actuation 2 puff inhalation Q4H PRN 05/04/23 01/20/24 01/20/24 Rx aerosol inhaler (Ventolin HFA) Shortness Of Breath #8.5 grams polyethylene glycol 3350 17 17 g PO DAILY #238 grams 10/12/23 01/19/24 01/19/24 Rx gram/dose oral powder (Miralax) paliperidone 6 mg tablet,extended 6 mg PO .7 pm #30 tabs 10/22/23 01/20/24 01/20/24 Rx release 24 hr (Invega) trazodone 100 mg tablet 300 mg (3 x 100 mg) PO .HS #90 tabs 10/22/23 01/19/24 Unknown Rx hydroxyzine pamoate 25 mg capsule 50 mg (2 x 25 mg) PO Q6H PRN 12/14/23 01/20/24 01/20/24 Rx Anxiety 30 days #30 caps allopurinol 300 mg tablet 300 mg PO DAILY 01/19/24 01/20/24 01/20/24 History gabapentin 400 mg capsule 400 mg PO TID 01/19/24 01/20/24 01/20/24 History meloxicam 15 mg tablet 15 mg PO DAILY 01/19/24 01/20/24 01/20/24 History omeprazole 20 mg capsule,delayed 20 mg PO BID 01/19/24 01/20/24 01/20/24 History release sumatriptan succinate 100 mg tablet 100 mg PO DAILY PRN headaches 01/19/24 01/19/24 Unknown History umeclidinium 62.5 mcg-vilanterol 1 inh inhalation DAILY 01/19/24 01/20/24 01/20/24 History 25 mcg/actuation powdr for inhalation (Anoro Ellipta) Allergies Allergy/AdvReac Type Severity Reaction Status Date / Time codeine Allergy Mild Nausea/Vomi Verified 01/19/24 10:10 ting Current Medications Generic Name Dose Route Start Last Admin Trade Name Jacek PRN Reason Stop Dose Admin Sodium Chloride 1,000 mls @ 30 mls/hr 01/20/24 10:45 01/20/24 11:03 Sodium Chloride 0.9% IV 30 mls/hr .Q24H SUKH Administration PFSH Anesthesia Medical History Parkinsons disease Polypharmacy Medical marijuana use Cannabis dependence with current use medical marijuana card Psychiatric care Diverticulosis Abdominal pain Nicotine dependence, cigarettes, uncomplicated Bipolar 1 disorder, mixed, severe Enrolled in chronic care management Parkinson's disease dementia MCI (mild cognitive impairment) Chronic GERD BRIANDA (obstructive sleep apnea) COPD (chronic obstructive pulmonary disease) RLS (restless legs syndrome) Migraine headache Surgical History History of back surgery S/P hernia repair S/P insertion of spinal cord stimulator H/O shoulder surgery Family History Other CAD (coronary artery disease) Cancer Dementia Social History Smoking and tobacco/nicotine status: former use of tobacco/nicotine Quit status (tobacco/nicotine): has quit using Year quit tobacco: 08/2023 Former quit date comment: 2ppd X 42year Second hand smoke exposure: No Alcohol intake: former Substance/Drug Use: never Lives independently: Yes Household members: significant other Current occupational status: disabled Do you think of yourself as: Straight/Heterosexual Current gender identity: Male Data Anesthesia Cardiac Studies: Echocardiogram 05/24/23 Holter Monitor 03/31/23
[2024-01-20 12:42] VITALS: BP 90/59; PULSE 64; RESP 18; TEMP 36.1; O2SAT 92
--- NOTE | 2024-01-20 14:26 | ANE.PACU2 ---
Inpatient post-anesthesia follow up: Airway intact: Yes Vital signs: Temperature 97.0 F Pulse Rate 64 Respiratory Rate 18 Blood Pressure 90/59 Pulse Oximetry 92 Oxygen Delivery Me thod Room Air Oxygen Flow Rate Fraction of Inspir ed Oxygen Hydration adequate: Yes Nausea and vomiting: No Pain level: 2 Mental status: Baseline
== END 2024-01-20 13:19 | disposition home or self-care (01) ==
PROVIDERS: PCP Family Medicine; Visit Provider Surgery
PROC: 0DJD8ZZ Inspection of Lower Intestinal Tract, Via Natural or Artificial Opening Endoscopic (ICD-10-PCS; CPT 45378; principal; 2024-01-20 11:40)
DX: Z12.11 Encounter for screening for malignant neoplasm of colon (principal); G20.A1 Parkinson's disease without dyskinesia, without mention of fluctuations; G47.33 Obstructive sleep apnea (adult) (pediatric); J44.9 Chronic obstructive pulmonary disease, unspecified; Z87.891 Personal history of nicotine dependence; D12.5 Benign neoplasm of sigmoid colon; K52.9 Noninfective gastroenteritis and colitis, unspecified
CPT/HCPCS: 45380; 88305; J2704; J7030

== ENCOUNTER → 2024-02-02 10:14 | Outpatient (BNVA) | payer MEDICARE, MEDICAID, SELFPAY | PROVIDERS: PCP Family Medicine; Visit Provider Surgery | DX: Z09 Encounter for follow-up examination after completed treatment for conditions other than malignant neoplasm (principal) | CPT/HCPCS: 99213 ==

== ENCOUNTER → 2024-02-16 09:55 | Outpatient (BNVA) | payer MEDICARE, MEDICAID, SELFPAY | PROVIDERS: PCP Family Medicine; Visit Provider Internal Medicine Cardiovascular Disease | DX: Z13.6 Encounter for screening for cardiovascular disorders (principal); F17.219 Nicotine dependence, cigarettes, with unspecified nicotine-induced disorders; I95.0 Idiopathic hypotension; Z79.899 Other long term (current) drug therapy | CPT/HCPCS: 99213 ==

== ENCOUNTER → 2024-04-12 10:48 | Outpatient (BNVA) | payer MEDICARE, MEDICAID, SELFPAY | PROVIDERS: PCP Family Medicine; Visit Provider Podiatrist Foot & Ankle Surgery | DX: M79.671 Pain in right foot (principal); M79.672 Pain in left foot; R20.2 Paresthesia of skin | CPT/HCPCS: 99213 ==

== ENCOUNTER 2024-06-13 09:51 | Outpatient (CLI) | payer MEDICARE, MEDICAID, SELFPAY ==
--- NOTE | 2024-06-13 10:00 | CT_ITS ---
WS: [id number] LDCT LUNG CANCER SCREENING HISTORY: Cancer Screen TECHNIQUE: Axial imaging performed from the apices to 1 cm below the costophrenic angles. Coronal and sagittal reformats are submitted with axial MIP series. All CT scans at [facility] use at least one of these dose optimization techniques: automated exposure control; mA and/or kV adjustment per patient size (includes targeted exams where dose is matched to clinical indication); or iterativ e reconstruction. DLP: 67.89 mGy.cm DIvol: Mean CTDIvol: 1.20 (mGy) COMPARISON: 06/11/2023 Diagnostic quality: Satisfactory Lungs: Bilateral perifissural nodules are benign and stable. 3 mm micronodule LEFT apex is stable. No pulmonary mass or increase in size of the nodule. Stable area of scarring or atelectasis in the ante rior RIGHT upper lobe. Heart: Normal size heart with no pericardial effusion.. Other findings: Mild atherosclerosis aorta. No adenopathy. No adrenal mass. Dorsal column stimulator electrode in the midthoracic region. CT/CT lung screening [id number] IMPRESSION: LUNG-RADS: 2-Benign Appearance or Behavior FOLLOW UP: 12 Month: Continue annual screening with LDCT OTHER FINDINGS (S MODIFIER): None.
== END 2024-06-13 09:52 | disposition home or self-care (01) ==
LOC: RAD 09:51
PROVIDERS: PCP Family Medicine; Visit Provider Internal Medicine Pulmonary Disease
DX: Z12.2 Encounter for screening for malignant neoplasm of respiratory organs (principal); Z87.891 Personal history of nicotine dependence; R91.1 Solitary pulmonary nodule
CPT/HCPCS: 71271

== ENCOUNTER → 2024-07-27 09:05 | Outpatient (BNVA) | payer MEDICARE, MEDICAID, SELFPAY | PROVIDERS: PCP Family Medicine; Visit Provider Internal Medicine Critical Care Medicine | DX: Z12.2 Encounter for screening for malignant neoplasm of respiratory organs; J44.1 Chronic obstructive pulmonary disease with (acute) exacerbation; F12.90 Cannabis use, unspecified, uncomplicated; R06.09 Other forms of dyspnea; F17.201 Nicotine dependence, unspecified, in remission; R91.1 Solitary pulmonary nodule | CPT/HCPCS: 99214 ==

== ENCOUNTER → 2024-10-05 08:41 | Outpatient (BNVA) | payer MEDICARE, OTHER, SELFPAY | PROVIDERS: PCP Family Medicine; Visit Provider Nurse Practitioner | DX: Z79.899 Other long term (current) drug therapy (principal) | CPT/HCPCS: 80061; 83036 ==

== ENCOUNTER → 2024-10-11 10:43 | Outpatient (BNVA) | payer MEDICARE, SELFPAY | PROVIDERS: PCP Family Medicine; Visit Provider Podiatrist Foot & Ankle Surgery | DX: G62.89 Other specified polyneuropathies (principal); M79.671 Pain in right foot; M79.672 Pain in left foot; R20.2 Paresthesia of skin | CPT/HCPCS: 99213 ==

== ENCOUNTER → 2025-01-30 10:31 | Outpatient (BNVA) | payer MEDICARE, OTHER, SELFPAY | PROVIDERS: PCP Family Medicine; Visit Provider Family Medicine | DX: R35.1 Nocturia (principal); M1A.0790 Idiopathic chronic gout, unspecified ankle and foot, without tophus (tophi) | CPT/HCPCS: 80053; 84153 ==

== ENCOUNTER → 2025-04-11 10:10 | Outpatient (BNVA) | payer MEDICARE, MEDICAID, SELFPAY | PROVIDERS: PCP Family Medicine; Visit Provider Podiatrist Foot & Ankle Surgery | DX: G62.9 Polyneuropathy, unspecified (principal); R20.2 Paresthesia of skin | CPT/HCPCS: 99214 ==

== ENCOUNTER → 2025-07-24 12:07 | Outpatient (BNVA) | payer MEDICARE, MEDICAID, SELFPAY | PROVIDERS: PCP Family Medicine; Visit Provider Family Medicine | DX: M1A.0790 Idiopathic chronic gout, unspecified ankle and foot, without tophus (tophi) (principal) | CPT/HCPCS: 80053; 84550; 85025 ==

== ENCOUNTER → 2025-09-17 08:21 | Outpatient (BNVA) | payer MEDICARE, MEDICAID, OTHER, SELFPAY | PROVIDERS: PCP Family Medicine; Visit Provider Nurse Practitioner | DX: Z79.899 Other long term (current) drug therapy (principal) | CPT/HCPCS: 80061; 83036 ==

== ENCOUNTER → 2025-10-02 11:05 | Outpatient (BNVA) | payer MEDICARE, MEDICAID, SELFPAY | PROVIDERS: PCP Family Medicine; Visit Provider Podiatrist Foot & Ankle Surgery | DX: G62.9 Polyneuropathy, unspecified (principal); R20.2 Paresthesia of skin | CPT/HCPCS: 99214 ==

== ENCOUNTER 2025-10-04 07:21 | Outpatient (CLI) | payer MEDICARE, MEDICAID, SELFPAY ==
[2025-10-04 07:42] VITALS: BMI 23.1
--- NOTE | 2025-10-04 07:44 | ECG_ITS ---
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 Interpretive Statements Findings: The patient's baseline blood pressure was 106/70 with a heart rate of 98 bpm. The patient exercised for total of 6 minutes reaching 7 METS and heart rate of 146 bpm which was 90% of the patient's maximal predicted heart rate. The patient's maximal blood pressure was 174/86 mmHg. At the end of recovery the patient's blood pressure was 120/71 with a heart rate of 85 bpm. Baseline EKG showed normal sinus rhythm with ST elevation in the inferior and anterolateral leads consistent with early repolarization. The ST elevation decreased with exercise. CONCLUSION: 1. Exercise capacity was average for age. 2. Heart rate response was appropriate. 3. Blood pressure response was appropriate. 4. No symptoms of angina during exercise. 5. Electrocardiogram portion of the stress test without evidence of ischemia. 6. Nuclear scan will be documented separately. Electronically Signed On 10-04-2025 19:43:42 IRRIGATING PUMP OPERATOR by Prince Vicente M.D. [email or web address]
--- NOTE | 2025-10-04 07:44 | NMCV_ITS ---
NM dyana perf SPECT r/s* [id number] Cabrera Sherman Age: 60 Gender: M : 1965 Exam Date: 10/04/2025 08:18 Ordering Phys: Katerine Salcedo DO Technologist: KORY Phan Exam Location: [facility] Indications: cp STRESS TEST [facility] IMAGE PROTOCOL Rest/Stress 1 Exercise Day Radiopharmaceutical Dose (mCi) Administration Site Administered by Rest: Tc-99m 10.9 IV KORY Phan Sestamibi Stress:Tc-99m 32.7 IV KORY Vasquez Sestamibi Rest: 04-Oct-2025 60 Discovery 630 Stress: 04-Oct-2025 30 Discovery 630 Radiopharmaceutical was injected at 87 % maximum heart rate. Images obtained in supine and prone position. SPECT RESULTS Technical Quality: Good Raw Data Analysis: Normal Image Corrections: No attenuation or motion correction applied Summed Stress Score: 4 Summed Rest Score: 7 Summed Difference Score: 0 PERFUSION FINDINGS There is a large area of moderately reduced tracer counts in the inferior wall that is fixed on the rest and stress images. FUNCTIONAL RESULTS (calculated via Gated SPECT) Stress Image LV EF (%): 64 Stress EDV (mL):85 TID: 0.83 Stress ESV (mL):31 FUNCTIONAL FINDINGS: Normal left ventricular systolic function, ejection fraction 64% IMPRESSIONS 1. Myocardial perfusion imaging negative for infarction and ischemia. Findings consistent with diaphragmatic attenuation artifact in the inferior wall. 2. Normal left ventricular systolic function, ejection fraction 64%. Prince Vicente MD, FACC (Electronically Signed) Final Date: 04 October 2025 19:33 S
[2025-10-04 09:13] VITALS: BP 120/71; PULSE 81
== END 2025-10-04 07:22 | disposition home or self-care (01) ==
LOC: CDL 07:25
PROVIDERS: PCP Family Medicine; Visit Provider Family Medicine
DX: R07.9 Chest pain, unspecified (principal)
CPT/HCPCS: 36415; 78452; 93017; A9500

== ENCOUNTER 2025-10-05 08:35 | Outpatient (CLI) | payer MEDICARE, MEDICAID, SELFPAY ==
--- NOTE | 2025-10-05 08:45 | CT_ITS ---
WS: [id number] LDCT LUNG CANCER SCREENING HISTORY: screening TECHNIQUE: Axial imaging performed from the apices to 1 cm below the costophrenic angles. Coronal and sagittal reformats are submitted with axial MIP series. All CT scans at [facility] use at least one of these dose optimization techniques: automated exposure control; mA and/or kV adjustment per patient size (includes targeted exams where dose is matched to clinical indication); or iterative reconstruction. DLP: 67.87 mGy.cm DIvol: Mean CTDIvol: 1.10 (mGy) COMPARISON: 06/13/2024 Diagnostic quality: Satisfactory Lungs: Hyperinflated lungs. Micronodule anterior LEFT upper lobe. There are no nodules greater than 3 mm. No mass or endobronchial lesions. Subsegmental atelectasis medial RIGHT upper lobe. Heart: Normal size heart with no pericardial effusion.. Other findings: Mild atherosclerosis aorta. No mediastinal or hilar adenopathy. Small hiatal hernia. No adrenal mass. Dorsal column stimulator. Electrodes noted in the midthoracic spine. CT/CT lung screening [id number] IMPRESSION: LUNG-RADS: 2-Benign Appearance or Behavior FOLLOW UP: 12 Month: Continue annual screening with LDCT OTHER FINDINGS (S MODIFIER): None.
== END 2025-10-05 08:36 | disposition home or self-care (01) ==
PROVIDERS: PCP Family Medicine; Visit Provider Family Medicine
DX: Z12.2 Encounter for screening for malignant neoplasm of respiratory organs (principal); F17.219 Nicotine dependence, cigarettes, with unspecified nicotine-induced disorders; R94.39 Abnormal result of other cardiovascular function study; J98.11 Atelectasis; I70.0 Atherosclerosis of aorta; K44.9 Diaphragmatic hernia without obstruction or gangrene; Z96.82 Presence of neurostimulator
CPT/HCPCS: 71271